=== PATIENT | female | born 1960 | race Two or more races ===

== ENCOUNTER 2016-12-27 14:03 | Emergency (ER) | payer OTHER ==
[~2016-12-27] VITALS: Ht 162.6 cm; Wt 184.6 kg
[2016-12-27 14:03] VITALS: BP 105/51
[~2016-12-27 14:03] MED LIST: ACET-2117 PO; ACET-907 PO; ARIP10TA15 PO; CHOL10002 PO; CITA40TA11 PO; DEXT15DR26 EACHEYE; DIVA500T54 PO; GABA-532 PO; GABA-534 PO; HYDR12.55 PO; LISI-607 PO; MOME13HF2 IH; OMEP40CA37 PO; TRAZ-144 PO
== END 2016-12-27 15:15 ==
LOC: ER 14:04
DX: S30.860A Insect bite (nonvenomous) of lower back and pelvis, initial encounter (principal); E66.01 Morbid (severe) obesity due to excess calories; F31.9 Bipolar disorder, unspecified; I10 Essential (primary) hypertension; Z88.5 Allergy status to narcotic agent; Z88.8 Allergy status to other drugs, medicaments and biological substances; W57.XXXA Bitten or stung by nonvenomous insect and other nonvenomous arthropods, initial encounter; Y93.89 Activity, other specified; Y92.89 Other specified places as the place of occurrence of the external cause; Y99.8 Other external cause status
CPT/HCPCS: 99282; A4606; A6402 ×2; Z7610

== ENCOUNTER 2017-03-30 09:51 | Emergency (ER) | payer MEDICAID, OTHER ==
[~2017-03-30] VITALS: Ht 160 cm; Wt 183.3 kg
[~2017-03-30 09:51] MED LIST changes: -ARIP10TA15 PO; +ARIP10TA9 PO
--- NOTE | 2017-03-30 10:06 | NUR ---
RERE FROM HOME DT REPORTED RECTAL BLEEDING X 3 DAYS. PER PATIENT SHE'S BEEN HAVING BRIGHT RED BLOOD FROM HER RECTAL WITH STOOL. PT DENIES ABDOMINAL PAIN, NAUSEA AND VOMITTING. SKIN IS WARM TO TOUCH AND NON DIAPHORETIC,. AFEBRILE. VSS
[2017-03-30 10:37] LABS: BASOPHILS % (AUTO) 0.4 % (0.0-2.0); EOSINOPHILS # (AUTO) 0.2 /CMM (0.0-0.7); EOSINOPHILS % (AUTO) 3.5 % (0.0-6.0); HEMATOCRIT 46 % (33-45); HEMOGLOBIN 15.2 g/dL (11.5-14.8); LYMPHOCYTES # (AUTO) 1.7 /CMM (0.8-4.8); MEAN CORPUSCULAR HEMOGLOBIN 32 PG (26.0-33.0); MEAN CORPUSCULAR HGB CONC 34 g/dl (31.0-36.0); MEAN CORPUSCULAR VOLUME 96 fL (82-100); MONOCYTES # (AUTO) 0.6 /CMM (0.1-1.30); MONOCYTES % (AUTO) 10.3 % (2.0-12.0); NEUTROPHILS # (AUTO) 3.2 /CMM (1.8-8.9); NEUTROPHILS % (AUTO) 55.8 % (43.0-81.0); PLATELET COUNT (AUTO) 198 /CMM (150-450); RDW COEFFICIENT OF VARIATION 14.6 (11.5-15.0); RED BLOOD CELL COUNT(AUTO) 4.76 MIL/uL (4.0-5.2); WHITE BLOOD COUNT (AUTO) 5.7 K/uL (4.3-11.0)
--- NOTE | 2017-03-30 10:55 | NUR ---
CALLED TRANSPORT ETA IS [phone] PER TA TRIP NUMBER IS [id number]
[2017-03-30 11:42] VITALS: BP 119/76
--- NOTE | 2017-03-30 11:42 | NUR ---
Patient discharged to home in stable condition. Written and verbal after care instructions given. Patient verbalizes understanding of instruction. PATIENT WAS TRANSFERRED VIA [facility]
== END 2017-03-30 11:43 | disposition home or self-care (01) ==
LOC: ER 09:55
DX: K64.8 Other hemorrhoids (principal); K64.4 Residual hemorrhoidal skin tags; E66.01 Morbid (severe) obesity due to excess calories; I10 Essential (primary) hypertension; F12.10 Cannabis abuse, uncomplicated; Z88.5 Allergy status to narcotic agent
CPT/HCPCS: 36415; 85025; 99283; A4606; Z7610

== ENCOUNTER 2017-04-28 12:32 | Inpatient (IN) | payer OTHER ==
[~2017-04-28] VITALS: Ht 162.6 cm; Wt 187.8 kg
[2017-04-28] VITALS (7 sets, daily range): BP systolic 105–143; BP diastolic 51–87
--- NOTE | 2017-04-28 12:35 | NUR ---
PT RERE FROM BOARD AND [facility] C/O DIFFUSE ABDOMINAL PAIN W/ N/V. PER REPORT PT IS SATTING LOW. PLACED ON O2. PT IS AAOX3. AWAITING MD HAMILTON. Addendum: 04/28/17 at 1457 by [facility] PLACED PT ON O2@3L/MIN. SATTING ON 87%. ARTHUR CONTINUE TO MONITOR. AWAITING MD HAMILTON.
--- NOTE | 2017-04-28 12:50 | NUR ---
JUAN DAVID DRY FINISHER AT BEDSIDE FOR EVAL.
[2017-04-28] MEDS ORDERED: IV NS 0.9% 1,000 ML BAG IV ONE (13:00)
[2017-04-28] MEDS ORDERED: ONDANSETRON HCL/PF 4 MG/2 ML VIAL IVP ONE (13:00)
--- NOTE | 2017-04-28 13:05 | NUR ---
PT PLACED ON O2@5L/MIN. SATTING AT 94%.
[2017-04-28] MEDS ORDERED: ONDANSETRON HCL/PF 4 MG/2 ML VIAL ONE ×3 (13:06→21:10)
[2017-04-28 13:08] LABS: BASOPHILS # (AUTO) 0.5 /CMM (0.0-0.2); BASOPHILS % (AUTO) 4.3 % (0.0-2.0); HEMATOCRIT 46 % (33-45); HEMOGLOBIN 15.2 g/dL (11.5-14.8); LYMPHOCYTES # (AUTO) 0.6 /CMM (0.8-4.8); LYMPHOCYTES % (AUTO) 5.8 % (20.0-44.0); MEAN CORPUSCULAR HEMOGLOBIN 32 PG (26.0-33.0); MEAN CORPUSCULAR HGB CONC 33 g/dl (31.0-36.0); MEAN CORPUSCULAR VOLUME 97 fL (82-100); MONOCYTES # (AUTO) 0.6 /CMM (0.1-1.30); MONOCYTES % (AUTO) 5.9 % (2.0-12.0); NEUTROPHILS # (AUTO) 9.3 /CMM (1.8-8.9); PLATELET COUNT (AUTO) 226 /CMM (150-450); RDW COEFFICIENT OF VARIATION 15.1 (11.5-15.0); RED BLOOD CELL COUNT(AUTO) 4.77 MIL/uL (4.0-5.2)
[2017-04-28 13:22] LABS: CALCIUM, SERUM 8.3 mg/dL (8.5-10.1); INR 1.01 (0.87-1.13)
[2017-04-28 13:27] LABS: ALBUMIN 2.8 g/dL (3.4-5.0); BILIRUBIN,DIRECT 0.1 mg/dL (0.0-0.2); BILIRUBIN,TOTAL 0.4 mg/dL (0.2-1.0); TOTAL PROTEIN, SERUM 7.5 g/dL (6.4-8.2)
[2017-04-28 13:31] LABS: APPEARANCE,URINE Clear (CLEAR); BILIRUBIN,URINE Negative (NEGATIVE); BLOOD, URINE Negative Ery/uL (NEGATIVE); COLOR,URINE Yellow (YELLOW); KETONES,URINE Trace (NEGATIVE); LEUKOCYTE ESTERASE ,URINE Negative (NEGATIVE); NITRITE, URINE Negative (NEGATIVE); PH,URINE 5.5 (5.0-8.0); PROTEIN,URINE 30 mg/dl (NEGATIVE); UGLUCOSE Negative (NEGATIVE)
[2017-04-28 13:35] LABS: SQUAMOUS EPITHELIAL CELL,UR Moderate /HPF (None Seen)
[2017-04-28 13:35] LABS: TROPONIN I 0.021 ng/mL (0.00-0.056)
[2017-04-28 13:36] LABS: BACTERIA,URINE Rare /HPF (None Seen)
[2017-04-28] MEDS ORDERED: ACETAMINOPHEN ES 500 MG TABLET ONE (13:56)
[2017-04-28] MEDS ORDERED: ONDANSETRON HCL/PF 4 MG/2 ML VIAL IV ONE (14:00)
[2017-04-28] MEDS ORDERED: ACETAMINOPHEN ES 500 MG TABLET PO ONE (14:00)
--- NOTE | 2017-04-28 14:05 | NUR ---
PT PLACED ON O2@2L/MIN. PER MARSII DIE TESTER VERBAL ORDER.
[2017-04-28 14:23] LABS: ABG BASE EXCESS 8.2 mmol/L; ABG OXYGEN SATURATION 92.1 % (92.0-98.5); ABG PCO2 75.1 mmHg (35.0-45.0); ABG PH 7.318 (7.350-7.450); ABG PO2 72.1 mmHg (75.0-100.0); AaDO2 126.7 mmHg; COHb 2.5 % (0.5-1.5); MetHb 0.5 % (0.0-1.5); O2Hb 89.3 % (94.0-97.0); SITE, ABG Right Radial; VENT MODE, BG NC 5L
--- NOTE | 2017-04-28 15:18 | NUR ---
CALLED DR ARNOLD OFFICE, WAS PAGED.
[2017-04-28] MEDS ORDERED: LEVO330T PO (16:20)
[2017-04-28] MEDS ORDERED: FLUT16SP BNOSTRILS (16:20)
[2017-04-28] MEDS ORDERED: FOLI1TAB16 PO (16:20)
[2017-04-28] MEDS ORDERED: DOCU100C36 PO (16:20)
[2017-04-28] MEDS ORDERED: BENZ0.5T3 PO (16:20)
--- NOTE | 2017-04-28 16:30 | NUR ---
CARLA ARNOLD OFFICE, WAS REPAGED.
--- NOTE | 2017-04-28 17:01 | NUR ---
REPORT GIVEN TO BREE. PT AWAITING TRANSFER TO FLOOR.
--- NOTE | 2017-04-28 17:20 | NUR ---
icu note- called dr. ordoñez's exchange, mariel sheridan food chemist for dr. ordoñez answered, notified of pt's admission, attempted to obtain admission orders, orders for albuterol, Atrovent and solu-medrol were received.
--- NOTE | 2017-04-28 17:30 | NUR ---
icu initial note- received report from katherine beltran, pt was received a/o x4, able to make needs known, able to follow commands, pt is able to move all extremities, pt was placed on 5l nc, sating well, no s/s of resp.distress or sob noted at this time, pt was placed on bedside monitor showing sr in 70's, no c/o of chest pain or discomfort, no c/o n&v, pt states I feel much better now, pt has l hand #20g,sl, c/d/i/patent, flushing well, no s/s of infection/ infiltration noted at this time, skin check completed, skin is intact, pt is able to move independently. all safety measures in place at all times, call light within easy reach, will monitor pt closely for changes
[2017-04-28] MEDS ORDERED: ALBUTEROL SULFATE 8 GM HFA.AER.AD IH PRN (18:30)
[2017-04-28] MEDS ORDERED: IPRATROPIUM BROMIDE 14 GM INHALER (or 12.9 GM) IH PRN (18:30)
[2017-04-28] MEDS ORDERED: IPRATROPIUM NEB FS 0.5 MG/2.5 ML AMPUL.NEB NEB PRN (19:30)
[2017-04-28] MEDS ORDERED: ALBUTEROL FS 2.5 MG/3 ML VIAL.NEB NEB PRN (19:30)
--- NOTE | 2017-04-28 19:58 | NUR ---
RESISTOR COATER. INITIAL ASSESSMENT. RECEIVED THE PT REST ON THE BED. AWAKE, ALERT, FOLLOW COMMANDS. INSULATION HOSEMAN SHOWING NSR. IV RT HAND 20G. SALINE LOCK. OXYGEN 5L VIA NASAL CANNULA. SAT 98%. NO ACUTE DISTRESS NOTED. WILL CONTINUE TO MONITOR VITALS.
[2017-04-28] MEDS: IPRATROPIUM NEB FS 0.5 MG/2.5 ML AMPUL.NEB NEB SCH ×2 (20:04→23:13)
[2017-04-28] MEDS: ONDANSETRON HCL/PF 4 MG/2 ML VIAL IV PRN (21:13)
[2017-04-28] MEDS: methylPREDNISolone SOD SUCC 40 MG/ML VIAL IV SCH (21:13)
--- NOTE | 2017-04-28 22:00 | NUR ---
GOLD STAMPER. BIPAP PLACED. SETTINGS 20/10, RATE 14,FIO2 60%. SAT 95%. NO ACUTE DISTRESS NOTED. WILL CONTINUE TO MONITOR VITALS.
--- NOTE | 2017-04-28 22:08 | NUR ---
PT PLACED ON NOC BIPAP PER MD ORDER. PT IS AWAKE AND ALERT. RN NOTIFIED. WILL CONTINUE TO MONITOR. Addendum: 04/28/17 at 2209 by AWA BERGMAN RT Amended: Links added.
--- NOTE | 2017-04-28 23:14 | NUR ---
PT REMOVED BIPAP. RN NOTIFIED. PLACED ON SM. WILL CONTINUE TO MONITOR. Addendum: 04/28/17 at 2315 by AWA BERGMAN RT Amended: Links added.
--- NOTE | 2017-04-28 23:18 | NUR ---
LEASE BUYER. PT REFUSED BIPAP. REMOVED AT 2315, SIMPLE MASK PLACED.OXYGEN 6L. WILL CONTINUE TO MONITOR.
[2017-04-29] VITALS (20 sets, daily range): BP systolic 102–156; BP diastolic 50–108
[2017-04-29] MEDS: IPRATROPIUM NEB FS 0.5 MG/2.5 ML AMPUL.NEB NEB SCH ×7 (03:25→23:30)
--- NOTE | 2017-04-29 04:00 | NUR ---
FURNACE REPAIRER HELPER. AM CARE, ORAL CARE. BED BATH GIVEN. LINEN CHANGED. REMAINING SAME OXYGEN 6L SIMPLE MASK SAT 98%HOB ELEVATED. PT REFUSED BIPAP. TURN AND REPOSITION PT INDEPENDENT.AFEBRILE. WILL CONTINUE TO MONITOR VITALS.
[2017-04-29] MEDS: methylPREDNISolone SOD SUCC 40 MG/ML VIAL IV SCH ×3 (05:22→21:22)
--- NOTE | 2017-04-29 08:00 | NUR ---
SHIPYARD LABORER NOTE PATIENT , IN BED , ALERT , ORIENTED ON 6L MASK ,NO SOB NOTED , BED IN LOWEST AND LOCKED POSITION , PLAN OF CARE DISCUSSED WITH PATIENT BED IN LOWEST AND LOCKED POSITION, WILL CONT TO MONITOR CLOSELY
--- NOTE | 2017-04-29 10:30 | NUR ---
horticultural farmer note seen by dr smita lawton to start home meds , faxed to pharmacy
--- NOTE | 2017-04-29 11:30 | NUR ---
agricultural research engineer note seen by rt breathing tx done
[2017-04-29] MEDS ORDERED: DOCUSATE SODIUM 100 MG CAPSULE PO PRN (12:30)
[2017-04-29] MEDS ORDERED: ACETAMINOPHEN W/ CODEINE#3 1 EA TABLET PO PRN (12:30)
[2017-04-29] MEDS ORDERED: POLYVINYL ALCOHOL 15 ML BOTTLE EACHEYE PRN (12:30)
--- NOTE | 2017-04-29 15:28 | NUR ---
vocational horticulture instructor note transfer to tele unit unde ascls protocol by bed with stable condition. report given to jose murphy
--- NOTE | 2017-04-29 15:30 | NUR ---
STOREKEEPER STEWARD NOTES TRANSFERED FROM ICU WITH STABLE VITAL SIGNS. NO ACUTE DISTRESS NOTED. ALERT ORIENTED X4. DENIED ANY PAIN. ORIENTED TO THE ROOM. IV ACCESS PATENT AND INTACT. SAFE MEASURES IN PLACE. CALL LIGHT PLACED WITHIN REACH. WILL CONTINUE TO MONITOR ACCORDINGLY
[2017-04-29] MEDS ORDERED: DULERA INH SCH (17:00)
[2017-04-29] MEDS ORDERED: DEXTROSE 50%-WATER 50 ML DISP.SYRIN IV PRN (17:00)
[2017-04-29] MEDS: BENZTROPINE MESYLATE (1 MG) 1 MG TABLET PO SCH (18:08)
[2017-04-29] MEDS: GABAPENTIN 100 MG CAPSULE PO SCH (18:08)
[2017-04-29] MEDS: BLOOD SUGAR DIAGNOSTIC 1 EACH STRIP IN SCH ×2 (18:09→21:59)
[2017-04-29] MEDS: INSULIN ASPART/LISPRO 100 UNIT/ML CARTRIDGE SQ PRN ×2 (18:11→22:04)
--- NOTE | 2017-04-29 18:30 | NUR ---
RN CLOSING NOTES PATIENT IN BED AWAKE, VERBALLY RESPONSIVE.HOB ELAVATED. NO ACUTE DISTRESS NOTED. ON O2 8LPM VIA FACE MASK. IV ACCES PATENT AND INTACT.NO REDNESS AND NO S/SX OF INFILTRATION NOTED.BREATHING UNLABORED. DUE MEDICATIONS GIVEN, NO ASE NOTED. NEEDS ATTENDED. CALL LIGHT PLACED WITHIN REACH. SAFETY MEASURE IN PLACE. WILL CONTINUE TO MONITOR ACCORDINGLY AND ENDORSE TO FACILITIES MAINTENANCE MANAGER FOR CONTINUITY OF CARE.
[2017-04-29] MEDS: LEVOCARNITINE 330 MG TABLET PO SCH (19:40)
--- NOTE | 2017-04-29 19:46 | NUR ---
RECIEVED MS DIALLO ALERT AND ORIENTATED IN GOOD SPIRITS. ON A SPECIAL AIR FLOW BED VERBALIZING HER NEEDS 8L VIA MASK ABLE TO SPEAK IN SENTENCES W/O SOB SKIN WARM AN DRY
[2017-04-29] MEDS: LISINOPRIL (5MG) 5 MG TABLET PO SCH (21:23)
[2017-04-29] MEDS: TRAZODONE 50 MG TABLET PO SCH (21:23)
[2017-04-29] MEDS: GABAPENTIN 300 MG CAPSULE PO SCH (21:23)
[2017-04-29] MEDS: DIVALPROEX SODIUM 500 MG TABLET.DR PO SCH (21:25)
--- NOTE | 2017-04-29 22:00 | NUR ---
BLOOD SUGAR 118
--- NOTE | 2017-04-30 | NUR ---
Pt does not want to be put on bipap, says feels comfortable with the o2 mask
[2017-04-30 00:37] VITALS: BP 128/80
[2017-04-30] MEDS: ONDANSETRON HCL/PF 4 MG/2 ML VIAL IV PRN (01:25)
[2017-04-30] MEDS: IPRATROPIUM NEB FS 0.5 MG/2.5 ML AMPUL.NEB NEB SCH ×6 (03:30→23:30)
--- NOTE | 2017-04-30 04:41 | NUR ---
Ms. Hudson slept restless in the bed, noted turning from abdomen, to side, to back. Medicated x1 for nausea with no emesis, and effective. She is continent and will turn to allow the nurses to place her on a bedpan. She is NSR to SB (58) HR on the teletypesetter monitor. ON the mask 8 liters 02 sats 95% at rest, (asleep). Remain alert and orientated X4. Needs much assist with ADLs
[2017-04-30 04:43] VITALS: BP 130/75
[2017-04-30] MEDS: methylPREDNISolone SOD SUCC 40 MG/ML VIAL IV SCH ×3 (05:45→21:40)
[2017-04-30] MEDS: BLOOD SUGAR DIAGNOSTIC 1 EACH STRIP IN SCH ×4 (06:34→21:47)
[2017-04-30 07:08] VITALS: BP 119/70
--- NOTE | 2017-04-30 07:52 | NUR ---
MS/RN OPENING NOTE PATIENT IN BED IN STALE CONDITION. A/O X 3. NO SIGNS OF ACUTE DISTRESS. NO COMPLAIN OF PAIN OR DISCOMFORT. ON TELE MONITOR WITH SINUS RHYTHM. ALL NEEDS ATTENDED TO. CALL LIGHT WITHIN REACH. WILL CONTINUE TO MONITOR TO ENSURE SAFETY.
[2017-04-30] MEDS: FLUTICASONE PROPIONATE 16 GM BOTTLE NS SCH (09:00)
[2017-04-30] MEDS: LEVOCARNITINE 330 MG TABLET PO SCH ×2 (09:20→17:02)
[2017-04-30] MEDS: CITALOPRAM HYDROBROMIDE 20 MG TABLET PO SCH (09:20)
[2017-04-30] MEDS: GABAPENTIN 100 MG CAPSULE PO SCH ×2 (09:20→17:02)
[2017-04-30] MEDS: ARIPIPRAZOLE 5 MG TABLET PO SCH (09:20)
[2017-04-30] MEDS: DIVALPROEX SODIUM 500 MG TABLET.DR PO SCH ×2 (09:20→21:40)
[2017-04-30] MEDS: CHOLECALCIFEROL 1,000 UNIT TABLET (VIT D3) PO SCH (09:20)
[2017-04-30] MEDS: FOLIC ACID 1 MG TABLET PO SCH (09:21)
[2017-04-30] MEDS: PANTOPRAZOLE 40 MG TABLET.DR PO SCH (09:21)
[2017-04-30] MEDS: HYDROCHLOROTHIAZIDE 25 MG TABLET PO SCH (09:21)
[2017-04-30] MEDS: BENZTROPINE MESYLATE (1 MG) 1 MG TABLET PO SCH ×2 (09:21→17:02)
[2017-04-30] MEDS: ACETAMINOPHEN 325 MG TABLET PO PRN ×2 (09:39→18:42)
--- NOTE | 2017-04-30 10:27 | NUR ---
TELE/RN REFUSE TELE MONITOR PATIENT REFUSE TO HAVE TELE MONITOR ON. OFFERED TIMES 3 WITH RISK BENEFITS EXPLAINED, STILL CONTINUE TO REFUSE. WILL MAKE DR FOFANA AWARE.
--- NOTE | 2017-04-30 11:17 | NUR ---
TELE/RN SEEN BY DR SLOAN PATIENT SEEN BY DR SLOAN WITH FOLLOW UP CXR ORDER IN AM.
[2017-04-30 16:00] VITALS: BP 119/70
--- NOTE | 2017-04-30 18:04 | NUR ---
TELE/RN CLOSING NOTE PATIENT IN BED IN STABLE CONDITION. A/O X 3. NO SIGNS OF ACUTE DISTRESS. NO COMPLAIN OF PAIN OR DISCOMFORT. ON OXYGEN AT 8LPM VIA FACE MASK, TOLERATING WELL. TELE MONITOR STANDBY, CONTINUE TO REFUSE TELE MONITOR. OFFERED TIMES 3 WITH RISK BENEFITS EXPLAINED STILL CONTINUE TO REFUSE. ALL NEEDS ATTENDED TO. CALL LIGHT WITHIN REACH. WILL ENDORSE TO NEXT SHIFT FOR CONTINUITY OF CARE.
--- NOTE | 2017-04-30 19:33 | NUR ---
OUT AND OUT CIGAR MAKER HAND NOTES RT MAR AT BEDSIDE ADMINISTERING BREATHING TREATMENT SCHEDULED.
--- NOTE | 2017-04-30 19:45 | NUR ---
MS RN NOTES RECEIVED ON BED A/O 4,NO SOB O2 8L/FACE MASK,O2 SAT 96%.OBESE,ON BARIATRIC BED,ABLE TO REPOSITION SELF.CONTINENT PER BEDPAN .SALINE LOCK LEFT HAND g22 INTACT AND PATENT.WILL CONTINUE TO MONITOR STATUS.
[2017-04-30 20:00] VITALS: BP 145/80
[2017-04-30 22:00] VITALS: BP 145/80
--- NOTE | 2017-04-30 22:00 | NUR ---
MOBILE MARKETING SPECIALIST NOTES ACCU-CHECK BLOOD SUGAR CHECK 112,NO INSULIN COVERAGE.
[2017-04-30] MEDS: LISINOPRIL (5MG) 5 MG TABLET PO SCH (22:31)
[2017-04-30] MEDS: GABAPENTIN 300 MG CAPSULE PO SCH (22:31)
[2017-04-30] MEDS: TRAZODONE 50 MG TABLET PO SCH (22:34)
--- NOTE | 2017-04-30 23:00 | NUR ---
PT REFUSED BIPAP AT NIGHT. PLACED BACK ON SIMPLE MASK 8L, RN THOMAS NOTIFIED.
[2017-05-01] VITALS: BP 139/84
--- NOTE | 2017-05-01 | NUR ---
CALENDERER NOTES REFUSED TELE THIS TIME.PLACE ON STAND BY.
[2017-05-01] MEDS: IPRATROPIUM NEB FS 0.5 MG/2.5 ML AMPUL.NEB NEB SCH ×6 (03:01→23:57)
[2017-05-01] MEDS: ONDANSETRON HCL/PF 4 MG/2 ML VIAL IV PRN (03:12)
--- NOTE | 2017-05-01 03:12 | NUR ---
AIRPORT OPERATIONS DUTY MANAGER NOTES C/O NAUSEA,ZOFRAN 4MG IV GIVEN ORDERED
--- NOTE | 2017-05-01 03:12 | NUR ---
DAMASCENER NOTES C/O NAUSEA,ZOFRAN 4MG IVP GIVEN.
[2017-05-01] MEDS ORDERED: MAG HYDROX/AL HYDROX/SIMETH 30 ML UDC ONE (03:17)
--- NOTE | 2017-05-01 03:18 | NUR ---
MINING TEACHER NOTES CLAIMED GASSY STOMACH,HERMILA HOLLINS MADE AWARE.WITH ORDER TO GIVE MAALOX 30 ML PO Q 6NOTED AND CARRIED OUT
[2017-05-01] MEDS ORDERED: MAG HYDROX/AL HYDROX/SIMETH 30 ML UDC PO PRN (03:30)
[2017-05-01 04:00] VITALS: BP 123/76
--- NOTE | 2017-05-01 05:30 | NUR ---
INTERSTATE BUS DRIVER NOTES ACCU-CHECK BLOOD SUGAR CHECK 136,COVERED WITH INSULIN LISPRO 2 UNITS PER SLIDING SCALE.
[2017-05-01] MEDS: methylPREDNISolone SOD SUCC 40 MG/ML VIAL IV SCH ×3 (05:40→21:12)
[2017-05-01] MEDS: BLOOD SUGAR DIAGNOSTIC 1 EACH STRIP IN SCH (05:45)
[2017-05-01] MEDS: INSULIN ASPART/LISPRO 100 UNIT/ML CARTRIDGE SQ PRN (05:52)
--- NOTE | 2017-05-01 07:00 | NUR ---
PRESCRIPTIONIST NOTES TELE BOX ON STANDBY,PATIENT REFUSED TO PUT IT BACK.MORNING CARE RENDERED BY SHANTEL BOB.O2 AT 8L/NC IN USED O2 SAT 96%.IN NO ACUTE DISTRESS.WILL ENDORSE TO DAY NURSE FOR EBONI.
--- NOTE | 2017-05-01 07:35 | NUR ---
AIR TRAFFIC CONTROL MANAGER OPENING NOTE PATIENT IS ALERT AND ORIENTED x4. NO PAIN AT THIS TIME. NO SOB OR DISTRESS NOTED. CALL LIGHT WITHIN REACH. SAFETY MEASURES IMPLEMENTED. ABLE TO COMMUNICATE NEEDS. TELE -SR AT THIS TIME. IV INTACT AND PATENT NO REDNESS OR SWELLING NOTED. NO IV FLUIDS RUNNING AT THIS TIME. CHEST X-RAY DONE THIS MORNING, NO CHANGES NOTED. POSSIBLE DISCHARGE WILL FOLLOW UP WITH CASE MANAGEMENT. WILL CONTINUE TO MONITOR THROUGHOUT SHIFT
[2017-05-01 08:00] VITALS: BP 114/61
[2017-05-01] MEDS: GABAPENTIN 100 MG CAPSULE PO SCH ×2 (09:42→16:14)
[2017-05-01] MEDS: FOLIC ACID 1 MG TABLET PO SCH (09:45)
[2017-05-01] MEDS: ARIPIPRAZOLE 5 MG TABLET PO SCH (09:45)
[2017-05-01] MEDS: BENZTROPINE MESYLATE (1 MG) 1 MG TABLET PO SCH ×2 (09:45→16:14)
[2017-05-01] MEDS: CHOLECALCIFEROL 1,000 UNIT TABLET (VIT D3) PO SCH (09:49)
[2017-05-01] MEDS: HYDROCHLOROTHIAZIDE 25 MG TABLET PO SCH (09:49)
[2017-05-01] MEDS: PANTOPRAZOLE 40 MG TABLET.DR PO SCH (09:50)
[2017-05-01] MEDS: CITALOPRAM HYDROBROMIDE 20 MG TABLET PO SCH (09:50)
[2017-05-01] MEDS: LEVOCARNITINE 330 MG TABLET PO SCH ×2 (09:52→16:14)
[2017-05-01] MEDS: DIVALPROEX SODIUM 500 MG TABLET.DR PO SCH ×2 (09:52→21:12)
[2017-05-01] MEDS: FLUTICASONE PROPIONATE 16 GM BOTTLE NS SCH (09:53)
[2017-05-01] MEDS: FLUTICASONE/VILANTEROL 1 EACH BLST.W.DEV IH SCH (09:54)
[2017-05-01 12:11] LABS: ABG BASE EXCESS 12.5 mmol/L; ABG PCO2 72.3 mmHg (35.0-45.0); ABG PH 7.374 (7.350-7.450); ABG PO2 103.6 mmHg (75.0-100.0); AaDO2 186.2 mmHg; COHb 0.9 % (0.5-1.5); MetHb 0.3 % (0.0-1.5); O2Hb 95.8 % (94.0-97.0); SITE, ABG Left Radial
[2017-05-01 16:00] VITALS: BP 142/86
--- NOTE | 2017-05-01 18:36 | NUR ---
SHOWROOM SALESPERSON CLOSING NOTE NO NEW CHANGES. NO PAIN AT THIS TIME. NO SOB OR DISTRESS NOTED. CALL LIGHT WITHIN REACH AT ALL TIMES. SAFETY MEASURES IMPLEMENTED. ABLE TO COMMUNICATE NEEDS. IV INTACT AND PATENT NO REDNESS OR SWELLING NOTED. ALL DUE MEDICATIONS GIVEN ORDERED. ALL NURSING CARE NEEDS ATTENDED TO NEEDED. WILL ENDORSE TO TINT LAYER NURSE FOR EBONI
[2017-05-01 19:00] VITALS: BP 133/83
--- NOTE | 2017-05-01 19:45 | NUR ---
WEB PROJECT MANAGER NOTES RECEIVED ON BED A/O X4,OBESE,ON BARIMAXX BED FOR MOBILITY.SALINE LOCK LEFT HAND INTACT AND PATENT.ABLE TO REPOSITION SELF ON BED.O2 6L/NC IN USED. RT AT BEDSIDE ADMINISTERING BREATHING TX SCHEDULED.CALL LIGHT IN REACH,NEEDS ANTICIPATED.
[2017-05-01 20:00] VITALS: BP 133/83
[2017-05-01] MEDS: GABAPENTIN 300 MG CAPSULE PO SCH (21:58)
[2017-05-01] MEDS: TRAZODONE 50 MG TABLET PO SCH (21:58)
[2017-05-01] MEDS: LISINOPRIL (5MG) 5 MG TABLET PO SCH (21:58)
[2017-05-02] MEDS: IPRATROPIUM NEB FS 0.5 MG/2.5 ML AMPUL.NEB NEB SCH ×5 (03:55→15:14)
[2017-05-02] MEDS: methylPREDNISolone SOD SUCC 40 MG/ML VIAL IV SCH ×2 (05:03→11:40)
--- NOTE | 2017-05-02 06:24 | NUR ---
MS RN NOTES NO SIGNIFICANT CHANGE IN STATUS.SLEPT WELL WITH TRAZODONE.CALL LIGHT IN REACH.O2 SAT 94% ON 6L.POSSIBLE D/C TODAY SNF VS [facility].HEEL SEAT FLAP STAPLER WORKING FOR PLACEMENT.WILL ENDORSE TO DAY NURSE FOR EBONI.
--- NOTE | 2017-05-02 07:53 | NUR ---
TELE/RN OPENING NOTE RECEIVED PATIENT IN BED AWAKE. ALERT AND ORIENTED X4. RESPIRATION REGULAR AND UNLABORED. DENIES SOB, PAIN AT THIS TIME. IN NO APPARENT DISTRESS. RIGHT HAND IV SALINE LOCKED. NO S/S INFILTRATION NOTED. BED LOW AND LOCKED. SIDE RAIL UP X2. CALL LIGHT WITHIN REACH. WILL CONTINUE TO MONITOR.
[2017-05-02 08:00] VITALS: BP 141/82
[2017-05-02 08:07] VITALS: BP 141/82
[2017-05-02] MEDS: PANTOPRAZOLE 40 MG TABLET.DR PO SCH (08:28)
[2017-05-02] MEDS: DIVALPROEX SODIUM 500 MG TABLET.DR PO SCH (08:28)
[2017-05-02] MEDS: BENZTROPINE MESYLATE (1 MG) 1 MG TABLET PO SCH ×2 (08:29→16:44)
[2017-05-02] MEDS: GABAPENTIN 100 MG CAPSULE PO SCH ×2 (08:29→16:44)
[2017-05-02] MEDS: CHOLECALCIFEROL 1,000 UNIT TABLET (VIT D3) PO SCH (08:29)
[2017-05-02] MEDS: FOLIC ACID 1 MG TABLET PO SCH (08:29)
[2017-05-02] MEDS: HYDROCHLOROTHIAZIDE 25 MG TABLET PO SCH (08:29)
[2017-05-02] MEDS: ARIPIPRAZOLE 5 MG TABLET PO SCH (08:29)
[2017-05-02] MEDS: CITALOPRAM HYDROBROMIDE 20 MG TABLET PO SCH (08:30)
[2017-05-02] MEDS: FLUTICASONE/VILANTEROL 1 EACH BLST.W.DEV IH SCH (09:00)
--- NOTE | 2017-05-02 09:00 | NUR ---
TELE/RN MED NOT DELIVERED CELESTINE 330 MG NOT DELIVERED BY THE PHAR,. FOLLOW UP CALL MADE, STILL WAITING.
[2017-05-02] MEDS: FLUTICASONE PROPIONATE 16 GM BOTTLE NS SCH (09:01)
[2017-05-02] MEDS: LEVOCARNITINE 330 MG TABLET PO SCH ×2 (11:40→16:44)
--- NOTE | 2017-05-02 11:43 | NUR ---
CECI/HEIDI MED CARNITOR 330 MG DELIVERED BY THE PHARM AND DELIVERED. Addendum: 05/02/17 at 1146 by CELINE WILSON RN CARNITOR 330 MG DELIVERED BY THE PHARM AND THE MEDICATION ADMINISTERED TO THE PATIENT.
[2017-05-02 16:17] VITALS: BP_SYST 142; BP_SYST 155; BP_DIAS 71
--- NOTE | 2017-05-02 16:41 | NUR ---
MS/RN Room air saturation Saturation on room air 84%.
--- NOTE | 2017-05-02 18:38 | NUR ---
MS/RN CLOSING NOTE PATIENT IN BED AWAKE. ALERT AND ORIENTED X4. DENIES PAIN, DENIES SOB. RESPIRATION REGULAR AND UNLABORED. IN NO APPARENT DISTRESS. GOOD SKIN CARE RENDERED. ASSISTED WITH DRESSING AND HAD DINNER. BED LOW AND LOCKED. SIDE RAIL UP X2. CALL LIGHT WITHIN REACH. WAITING FOR PICKUP FOR DISCHARGE. WILL ENDORSE TO LADLE LINER HELPER.
[2017-05-02 20:00] VITALS: BP 117/58
--- NOTE | 2017-05-02 20:30 | NUR ---
MS RN NOTE PATIENT DISCHARGED BY TRANSPORT TO [facility] IN STABLE CONDITION. DISCHARGE PAPERWORK SIGNED AND GIVEN TO TRANSPORT. RECEIVING 6L O2 VIA NASAL CANNULA. ALL DISCHARGE INSTRUCTIONS EXPLAINED TO PATIENT. IV AND ID BAND REMOVED.
== END 2017-05-02 20:30 | DRG 143 ==
LOC: ER 12:43 → ICU 17:33 → TELE 04-29 14:43 → MED 05-02 08:13
PROVIDERS: ADMIT Internal Medicine; ATTEND Internal Medicine
DX: E66.2 Morbid (severe) obesity with alveolar hypoventilation (principal); J96.11 Chronic respiratory failure with hypoxia; E72.20 Disorder of urea cycle metabolism, unspecified; Z68.45 Body mass index [BMI] 70 or greater, adult; J96.12 Chronic respiratory failure with hypercapnia; I10 Essential (primary) hypertension; F12.90 Cannabis use, unspecified, uncomplicated; M17.11 Unilateral primary osteoarthritis, right knee; Z88.1 Allergy status to other antibiotic agents; Z88.5 Allergy status to narcotic agent; Z79.899 Other long term (current) drug therapy; F31.9 Bipolar disorder, unspecified; J45.909 Unspecified asthma, uncomplicated; Z87.891 Personal history of nicotine dependence; Z80.0 Family history of malignant neoplasm of digestive organs; F99 Mental disorder, not otherwise specified; J44.9 Chronic obstructive pulmonary disease, unspecified; A08.4 Viral intestinal infection, unspecified; T38.0X5A Adverse effect of glucocorticoids and synthetic analogues, initial encounter; Y92.099 Unspecified place in other non-institutional residence as the place of occurrence of the external cause; R73.9 Hyperglycemia, unspecified; T42.6X5A Adverse effect of other antiepileptic and sedative-hypnotic drugs, initial encounter
CPT/HCPCS: 36415; 36600; 71045-TC; 80048-TC; 80076-TC; 81000-TC; 82803-TC; 82962-TC; 83690-TC; 84484-TC; 85025-TC; 85378-TC; 85730-TC; 87081-TC; 94762-TC; 94799-TC; A4606; J1815; J2405; J2920; J7030; Z7610

== ENCOUNTER 2017-07-27 18:22 | Emergency (ER) | payer OTHER ==
[~2017-07-27] VITALS: Ht 162.6 cm; Wt 174.6 kg
[~2017-07-27 18:22] MED LIST changes: +BENZ0.5T43 PO; +DOCU100C36 PO; +FLUT16SP BNOSTRILS; +FOLI1TAB16 PO; +LEVO330T PO; -TRAZ-144 PO; +TRAZ-182 PO
[2017-07-27 18:25] VITALS: BP 124/76
--- NOTE | 2017-07-27 20:33 | NUR ---
RUDY CALLED FROM [facility] FOR SERVICE TECH/WELDER IS BETWEEN [phone] TRIP #[id number]
[2017-07-27] MEDS: IBUPROFEN 400 MG TABLET PO ONE ×2 (21:11→21:15)
[2017-07-27] MEDS ORDERED: IBUPROFEN 200 MG TABLET ONE (21:12)
--- NOTE | 2017-07-27 22:06 | NUR ---
JENN MTZ AT BEDSIDE FOR SPLINT APPLICATION.
--- NOTE | 2017-07-27 22:29 | NUR ---
REPORT GIVEN TO EMT TRANSPORT.
== END 2017-07-27 22:30 | disposition home or self-care (01) ==
LOC: ER 18:30
DX: S62.397A Other fracture of fifth metacarpal bone, left hand, initial encounter for closed fracture (principal); J45.909 Unspecified asthma, uncomplicated; G40.909 Epilepsy, unspecified, not intractable, without status epilepticus; I10 Essential (primary) hypertension; M19.90 Unspecified osteoarthritis, unspecified site; F31.9 Bipolar disorder, unspecified; E66.01 Morbid (severe) obesity due to excess calories; F17.200 Nicotine dependence, unspecified, uncomplicated; F12.10 Cannabis abuse, uncomplicated; Z88.5 Allergy status to narcotic agent; Z88.8 Allergy status to other drugs, medicaments and biological substances; W23.0XXA Caught, crushed, jammed, or pinched between moving objects, initial encounter; Y93.89 Activity, other specified; Y92.89 Other specified places as the place of occurrence of the external cause; Y99.8 Other external cause status
CPT/HCPCS: 73130-TC; A4606; Z7610

== ENCOUNTER 2017-09-11 15:42 | Emergency (ER) | payer OTHER ==
[~2017-09-11] VITALS: Ht 162.6 cm; Wt 175.1 kg
--- NOTE | 2017-09-11 15:55 | NUR ---
AAOX3, [id number] FROM [facility]: PELVIC PAIN, DYSURIA. RR IS EVEN AND UNLABORED WITH NAD NOTED. SKIN IS WARM AND DRY. AWAITING MD FOR EVAL.
[2017-09-11] MEDS ORDERED: KETOROLAC TROMETHAMINE INJ 30 MG/ML VIAL IV ONE (16:00)
[2017-09-11] MEDS ORDERED: IV NS 0.9% 1,000 ML BAG IV ONE (16:00)
[2017-09-11 16:26] LABS: BASOPHILS % (AUTO) 0.3 % (0.0-2.0); EOSINOPHILS % (AUTO) 1.8 % (0.0-6.0); HEMATOCRIT 45 % (33-45); HEMOGLOBIN 15.3 g/dL (11.5-14.8); LYMPHOCYTES # (AUTO) 2.4 /CMM (0.8-4.8); LYMPHOCYTES % (AUTO) 28.6 % (20.0-44.0); MEAN CORPUSCULAR HGB CONC 34 g/dl (31.0-36.0); MEAN CORPUSCULAR VOLUME 96 fL (82-100); MONOCYTES # (AUTO) 0.6 /CMM (0.1-1.30); MONOCYTES % (AUTO) 6.5 % (2.0-12.0); NEUTROPHILS # (AUTO) 5.4 /CMM (1.8-8.9); NEUTROPHILS % (AUTO) 62.8 % (43.0-81.0); PLATELET COUNT (AUTO) 202 /CMM (150-450); RDW COEFFICIENT OF VARIATION 15.5 (11.5-15.0); WHITE BLOOD COUNT (AUTO) 8.6 K/uL (4.3-11.0)
[2017-09-11] MEDS ORDERED: POLY15DR40 EACHEYE (16:27)
[2017-09-11] MEDS ORDERED: FLUT1BLS IH (16:27)
[2017-09-11] MEDS ORDERED: PANT40TA2 PO (16:27)
[2017-09-11] MEDS ORDERED: POLY17PO4 PO (16:27)
[2017-09-11 16:33] LABS: POTASSIUM 5.2 mmol/L (3.5-5.1)
[2017-09-11 16:41] LABS: ALBUMIN 2.5 g/dL (3.4-5.0); BILIRUBIN,TOTAL 0.5 mg/dL (0.2-1.0); TOTAL PROTEIN, SERUM 7.4 g/dL (6.4-8.2)
[2017-09-11 17:00] LABS: APPEARANCE,URINE Clear (CLEAR); BILIRUBIN,URINE Negative (NEGATIVE); BLOOD, URINE Negative Ery/uL (NEGATIVE); COLOR,URINE Yellow (YELLOW); KETONES,URINE Trace (NEGATIVE); LEUKOCYTE ESTERASE ,URINE Negative (NEGATIVE); NITRITE, URINE Negative (NEGATIVE); PROTEIN,URINE Negative (NEGATIVE); UGLUCOSE Negative (NEGATIVE)
[2017-09-11] MEDS ORDERED: KETOROLAC TROMETHAMINE INJ 30 MG/ML VIAL ONE (17:04)
--- NOTE | 2017-09-11 17:10 | NUR ---
APPLE JUICE GIVEN TO PATIENT.
[2017-09-11 17:17] LABS: BACTERIA,URINE None seen /HPF (None Seen); RBC,URINE 0-2 /HPF (0-2); SQUAMOUS EPITHELIAL CELL,UR Few /HPF (None Seen); WBC,URINE 0-2 /HPF (0-3)
--- NOTE | 2017-09-11 19:25 | NUR ---
REPORT GIVEN TO HEIDI OLIVA FOR EBONI.
--- NOTE | 2017-09-11 20:24 | NUR ---
[facility] CREW BEDSIDE TO TRANSPORT PT. REPORT GIVEN TO EMS FOR EBONI. VSS UPON DISCHARGE. PT BEING TRANSFERRED ONTO EMS GURNEY. Patient discharged to home in stable condition. Written and verbal after care instructions given. Patient verbalizes understanding of instruction.IV removed. Catheter intact and site benign. Pressure and 4x4 applied to site. No bleeding noted.
[2017-09-11 20:25] VITALS: BP 108/57
== END 2017-09-11 20:27 | disposition home or self-care (01) ==
LOC: ER 15:43
DX: R10.30 Lower abdominal pain, unspecified (principal); R30.0 Dysuria; I10 Essential (primary) hypertension; G40.909 Epilepsy, unspecified, not intractable, without status epilepticus; J45.909 Unspecified asthma, uncomplicated; F31.9 Bipolar disorder, unspecified; E66.01 Morbid (severe) obesity due to excess calories; M19.90 Unspecified osteoarthritis, unspecified site; F17.200 Nicotine dependence, unspecified, uncomplicated; Z88.5 Allergy status to narcotic agent; Z88.8 Allergy status to other drugs, medicaments and biological substances; Z68.44 Body mass index [BMI] 60.0-69.9, adult
CPT/HCPCS: 36415; 76856-TC; 80048-TC; 80076-TC; 81000-TC; 82962-TC; 83690-TC; 84703-TC; 85025-TC; A4606; J1885; J7030; Z7610

== ENCOUNTER 2017-12-05 12:19 | Emergency (ER) | payer OTHER ==
[~2017-12-05] VITALS: Ht 177.8 cm; Wt 184.0 kg
[~2017-12-05 12:19] MED LIST changes: -ACET-2117 PO; -ACET-907 PO; -DEXT15DR26 EACHEYE; -DOCU100C36 PO; +FLUT1BLS IH; -MOME13HF2 IH; -OMEP40CA37 PO; +PANT40TA2 PO; +POLY15DR40 EACHEYE; +POLY17PO4 PO
--- NOTE | 2017-12-05 12:20 | NUR ---
BIB EMS [facility] SNF FOR MIGRANE HEADACHE X 3 WEEKS, NAD NOTED, VSS, RESP EVEN AND UNLABORED, PT WAS PUT ON MONITOR, WAITING FOR MD HAMILTON
[2017-12-05] MEDS ORDERED: diphenhydrAMINE HCL 50 MG/ML VIAL ONE (13:16)
[2017-12-05] MEDS ORDERED: METOCLOPRAMIDE HCL 10 MG/2 ML VIAL ONE (13:16)
[2017-12-05] MEDS ORDERED: diphenhydrAMINE HCL 50 MG/ML VIAL IV ONE (13:30)
[2017-12-05] MEDS ORDERED: METOCLOPRAMIDE HCL 10 MG/2 ML VIAL IV ONE (13:30)
[2017-12-05] MEDS ORDERED: IV NS 0.9% 250 ML BAG IV ONE (13:30)
[2017-12-05] MEDS ORDERED: IV NS 0.9% 1,000 ML BAG IV ONE (13:30)
[2017-12-05 13:35] LABS: BASOPHILS # (AUTO) 0.2 /CMM (0.0-0.2); BASOPHILS % (AUTO) 1.7 % (0.0-2.0); HEMATOCRIT 45 % (33-45); HEMOGLOBIN 14.6 g/dL (11.5-14.8); LYMPHOCYTES # (AUTO) 1.7 /CMM (0.8-4.8); LYMPHOCYTES % (AUTO) 18.7 % (20.0-44.0); MEAN CORPUSCULAR HEMOGLOBIN 33 PG (26.0-33.0); MEAN CORPUSCULAR HGB CONC 32 g/dl (31.0-36.0); MEAN CORPUSCULAR VOLUME 100 fL (82-100); MONOCYTES # (AUTO) 0.6 /CMM (0.1-1.30); MONOCYTES % (AUTO) 6.9 % (2.0-12.0); NEUTROPHILS # (AUTO) 6.3 /CMM (1.8-8.9); NEUTROPHILS % (AUTO) 70.7 % (43.0-81.0); PLATELET COUNT (AUTO) 206 /CMM (150-450); RDW COEFFICIENT OF VARIATION 12.9 (11.5-15.0); RED BLOOD CELL COUNT(AUTO) 4.51 MIL/uL (4.0-5.2)
[2017-12-05 13:44] LABS: CALCIUM, SERUM 8.2 mg/dL (8.5-10.1); CREATININE 1.1 mg/dL (0.6-1.3); POTASSIUM 4.6 mmol/L (3.5-5.1)
[2017-12-05 13:48] LABS: INR 0.96 (0.85-1.15)
--- NOTE | 2017-12-05 15:02 | NUR ---
CALLED [facility] FOR BLS TO [facility]. SPOKE WITH ESTHER; TRIP#[phone]
--- NOTE | 2017-12-05 17:49 | NUR ---
Patient discharged to home in stable condition. Written and verbal after care instructions given. Patient verbalizes understanding of instruction.
--- NOTE | 2017-12-05 18:00 | NUR ---
IV removed. Catheter intact and site benign. Pressure and 4x4 applied to site. No bleeding noted.
[2017-12-05 18:01] VITALS: BP 125/105
== END 2017-12-05 18:02 ==
LOC: ER 12:20
DX: R51 Headache (principal); E66.01 Morbid (severe) obesity due to excess calories; I10 Essential (primary) hypertension; J45.909 Unspecified asthma, uncomplicated; F31.9 Bipolar disorder, unspecified; G40.909 Epilepsy, unspecified, not intractable, without status epilepticus; M17.10 Unilateral primary osteoarthritis, unspecified knee; F12.90 Cannabis use, unspecified, uncomplicated; Z68.43 Body mass index [BMI] 50.0-59.9, adult; Z88.5 Allergy status to narcotic agent; Z88.1 Allergy status to other antibiotic agents; Z79.899 Other long term (current) drug therapy
CPT/HCPCS: 36415; 80048; 85025; 85730; 96374; 96375; 99284; A4606; J1200; J2765; J7030; J7050; Z7610

== ENCOUNTER 2018-08-05 11:33 | Emergency (ER) | payer MEDICARE, OTHER ==
[~2018-08-05] VITALS: Ht 162.6 cm; Wt 177.8 kg
--- NOTE | 2018-08-05 11:47 | NUR ---
BIBRA 77, FROM SKILLED NURSING, C/O CP SHARP AFTER SMOKING JOINT, NON RADITING, NITRO 0.4MG AND ASA 162 MG GIVEN ON SCENE AND RELIEVED. PT AAOX4, VSS. DENIES CP, SOB, DIZZINESS, N/V, ARM/JAW PAIN, UPPER BACK PAIN @ THIS TIME. PT SEEN & EVAL'D BY DR. SOTELO. PLACED ON SPA COORDINATOR, SR & WILL CONT TO MONITOR.
[2018-08-05] MEDS ORDERED: IPRATROPIUM NEB FS 0.5 MG/2.5 ML AMPUL.NEB ONE (11:51)
[2018-08-05] MEDS ORDERED: ALBUTEROL FS 2.5 MG/3 ML VIAL.NEB ONE (11:51)
[2018-08-05] MEDS ORDERED: ASPIRIN 81 MG TAB.CHEW ONE (11:51)
--- NOTE | 2018-08-05 11:52 | NUR ---
VERBAL ORDER FROM DR. SOTELO TO GIVEN 162 MG OF ASA. PT HAD 162 MG OF ASA IN FIELD. PT BHAVIN WELL.
[2018-08-05] MEDS ORDERED: ASPIRIN 325 MG TABLET PO ONE ×2 (12:00→13:00)
[2018-08-05] MEDS ORDERED: ALBUTEROL FS 2.5 MG/3 ML VIAL.NEB NEB ONE (12:00)
[2018-08-05] MEDS ORDERED: IPRATROPIUM NEB FS 0.5 MG/2.5 ML AMPUL.NEB NEB ONE (12:00)
[2018-08-05 12:11] LABS: BASOPHILS # (AUTO) 0.1 /CMM (0.0-0.2); BASOPHILS % (AUTO) 1.7 % (0.0-2.0); EOSINOPHILS % (AUTO) 1.6 % (0.0-6.0); HEMATOCRIT 36 % (33-45); HEMOGLOBIN 12.4 g/dL (11.5-14.8); LYMPHOCYTES # (AUTO) 1.8 /CMM (0.8-4.8); LYMPHOCYTES % (AUTO) 21.1 % (20.0-44.0); MEAN CORPUSCULAR HGB CONC 34 g/dl (31.0-36.0); MEAN CORPUSCULAR VOLUME 109 fL (82-100); MONOCYTES # (AUTO) 0.6 /CMM (0.1-1.30); MONOCYTES % (AUTO) 6.3 % (2.0-12.0); NEUTROPHILS # (AUTO) 6.1 /CMM (1.8-8.9); NEUTROPHILS % (AUTO) 69.3 % (43.0-81.0); PLATELET COUNT (AUTO) 181 /CMM (150-450); RED BLOOD CELL COUNT(AUTO) 3.32 MIL/uL (4.0-5.2); WHITE BLOOD COUNT (AUTO) 8.7 K/uL (4.3-11.0)
[2018-08-05 12:14] LABS: CALCIUM, SERUM 8.3 mg/dL (8.5-10.1); CARBON DIOXIDE 34 mmol/L (21-32); CHLORIDE 98 mmol/L (98-107); CREATININE 1.1 mg/dL (0.6-1.3); GLUCOSE 88 mg/dL (74-106); POTASSIUM 4.1 mmol/L (3.5-5.1); SODIUM SERUM 135 mmol/L (136-145); UREA NITROGEN, BLOOD 27 mg/dL (7-18)
--- NOTE | 2018-08-05 12:40 | NUR ---
CALLED DR. FOFANA, SPEAKING WITH TIANNA JIMÉNEZ
--- NOTE | 2018-08-05 13:00 | NUR ---
PT ASLEEP, EASILY AWAKEN BY VERBAL STIMULI. DENIES CP, SOB, DIZZINESS, N/V, NUMBNESS OR ANY OTHER DISCOMFORT @ THIS TIME. WILL CONT TO MONITOR.
--- NOTE | 2018-08-05 13:27 | NUR ---
CALLED TRANSPORT [phone] ETA IS [phone] TRIP NUMBER [id number]
--- NOTE | 2018-08-05 14:57 | NUR ---
Patient discharged to home in stable condition. Written and verbal after care instructions given. Patient verbalizes understanding of instruction. IV removed. Catheter intact and site benign. Pressure and 4x4 applied to site. No bleeding noted.
--- NOTE | 2018-08-05 14:57 | NUR ---
PT EN ROUTE VIA BLS TO [facility]. PT STABLE DENIES ANY DISCOMFORT UPON LEAVING ED.
[2018-08-05 14:59] VITALS: BP 108/50
== END 2018-08-05 15:00 ==
LOC: ER 11:34
DX: R07.89 Other chest pain (principal); G40.909 Epilepsy, unspecified, not intractable, without status epilepticus; J45.909 Unspecified asthma, uncomplicated; I10 Essential (primary) hypertension; F31.9 Bipolar disorder, unspecified; F12.10 Cannabis abuse, uncomplicated; E66.01 Morbid (severe) obesity due to excess calories; Z88.5 Allergy status to narcotic agent; Z88.8 Allergy status to other drugs, medicaments and biological substances
CPT/HCPCS: 36415; 71045; 80048; 84484; 85025; 93005 ×2; 94640; 99284; J7030

== ENCOUNTER 2018-08-09 13:53 | Inpatient (IN) | payer MEDICARE, OTHER ==
[~2018-08-09] VITALS: Ht 162.6 cm; Wt 165.1 kg
[2018-08-09] MEDS ORDERED: SENN-18 PO (14:20)
[2018-08-09] MEDS ORDERED: POLY50DR EACHEYE (14:20)
[2018-08-09] MEDS ORDERED: CHOL100044 PO (14:20)
[2018-08-09] MEDS ORDERED: LEVO330T PO (14:20)
[2018-08-09] MEDS ORDERED: OMEP40CA37 PO (14:20)
[2018-08-09] MEDS ORDERED: FLUT1BLS IH (14:20)
[2018-08-09] MEDS ORDERED: NYST15CR2 TP (14:20)
[2018-08-09] MEDS ORDERED: CITA40TA11 PO (14:20)
[2018-08-09 15:26] LABS: BASOPHILS % (AUTO) 0.6 % (0.0-2.0); HEMATOCRIT 39 % (33-45); HEMOGLOBIN 13.4 g/dL (11.5-14.8); LYMPHOCYTES # (AUTO) 2.4 /CMM (0.8-4.8); LYMPHOCYTES % (AUTO) 29.8 % (20.0-44.0); MEAN CORPUSCULAR HGB CONC 35 g/dl (31.0-36.0); MEAN CORPUSCULAR VOLUME 109 fL (82-100); MONOCYTES # (AUTO) 0.9 /CMM (0.1-1.30); MONOCYTES % (AUTO) 11.2 % (2.0-12.0); NEUTROPHILS # (AUTO) 4.6 /CMM (1.8-8.9); NEUTROPHILS % (AUTO) 56.4 % (43.0-81.0); PLATELET COUNT (AUTO) 179 /CMM (150-450); RED BLOOD CELL COUNT(AUTO) 3.55 MIL/uL (4.0-5.2); WHITE BLOOD COUNT (AUTO) 8.1 K/uL (4.3-11.0)
[2018-08-09 15:35] LABS: CALCIUM, SERUM 8.5 mg/dL (8.5-10.1); CREATININE 0.9 mg/dL (0.6-1.3); POTASSIUM 3.8 mmol/L (3.5-5.1)
[2018-08-09 15:41] LABS: ALBUMIN 2.1 g/dL (3.4-5.0); BILIRUBIN,DIRECT 11.4 mg/dL (0.0-0.2); TOTAL PROTEIN, SERUM 6.5 g/dL (6.4-8.2)
[2018-08-09 16:43] LABS: EOSINOPHILS % (MANUAL) 1 % (0-4); LYMPHOCYTES % (MANUAL) 20 % (16-48); MONOCYTES % (MANUAL) 10 % (0-11.0); NEUTROPHILS % (MANUAL) 67 (42-76); REACTIVE LYMPHOCYTES 2 % (0-0)
[2018-08-09] MEDS ORDERED: ONDANSETRON HCL/PF 4 MG/2 ML VIAL IV PRN (23:00)
[2018-08-09] MEDS ORDERED: HYDROMORPHONE 1 MG/1 ML DISP.SYRIN IV PRN ×2 (23:00)
[2018-08-09 23:13] VITALS: BP 108/57
[2018-08-09 23:35] VITALS: BP 108/57
[2018-08-10 06:27] LABS: BASOPHILS # (AUTO) 0.2 /CMM (0.0-0.2); BASOPHILS % (AUTO) 2.7 % (0.0-2.0); EOSINOPHILS % (AUTO) 1.8 % (0.0-6.0); HEMATOCRIT 36 % (33-45); HEMOGLOBIN 12.6 g/dL (11.5-14.8); LYMPHOCYTES # (AUTO) 1.6 /CMM (0.8-4.8); LYMPHOCYTES % (AUTO) 21.2 % (20.0-44.0); MEAN CORPUSCULAR HGB CONC 35 g/dl (31.0-36.0); MEAN CORPUSCULAR VOLUME 108 fL (82-100); MONOCYTES # (AUTO) 0.7 /CMM (0.1-1.30); MONOCYTES % (AUTO) 9.1 % (2.0-12.0); NEUTROPHILS # (AUTO) 4.8 /CMM (1.8-8.9); NEUTROPHILS % (AUTO) 65.2 % (43.0-81.0); PLATELET COUNT (AUTO) 169 /CMM (150-450); RED BLOOD CELL COUNT(AUTO) 3.32 MIL/uL (4.0-5.2); WHITE BLOOD COUNT (AUTO) 7.4 K/uL (4.3-11.0)
[2018-08-10 06:39] LABS: ALBUMIN 1.9 g/dL (3.4-5.0); BILIRUBIN,TOTAL 13.8 mg/dL (0.2-1.0); CALCIUM, SERUM 8.5 mg/dL (8.5-10.1); CREATININE 0.9 mg/dL (0.6-1.3); POTASSIUM 3.8 mmol/L (3.5-5.1)
[2018-08-10 07:21] LABS: EOSINOPHILS % (MANUAL) 2 % (0-4); LYMPHOCYTES % (MANUAL) 12 % (16-48); MONOCYTES % (MANUAL) 9 % (0-11.0); NEUTROPHILS % (MANUAL) 77 (42-76)
[2018-08-10 08:33] VITALS: BP 93/47
[2018-08-10] MEDS: HYDROCHLOROTHIAZIDE 25 MG TABLET PO SCH (09:00)
[2018-08-10] MEDS ORDERED: POLYVINYL ALCOHOL 15 ML BOTTLE EACHEYE PRN (09:00)
[2018-08-10] MEDS: ARIPIPRAZOLE 5 MG TABLET PO SCH (09:48)
[2018-08-10] MEDS: PANTOPRAZOLE 40 MG TABLET.DR PO SCH (09:48)
[2018-08-10] MEDS: LEVOCARNITINE 330 MG TABLET PO SCH ×3 (09:49→17:09)
[2018-08-10] MEDS: CITALOPRAM HYDROBROMIDE 20 MG TABLET PO SCH (09:56)
[2018-08-10] MEDS: BENZTROPINE MESYLATE (1 MG) 1 MG TABLET PO SCH ×2 (09:57→17:09)
[2018-08-10] MEDS: DIVALPROEX SODIUM 500 MG TABLET.DR PO SCH ×2 (09:57→21:47)
[2018-08-10] MEDS: FOLIC ACID 1 MG TABLET PO SCH (09:57)
[2018-08-10] MEDS: CHOLECALCIFEROL 1,000 UNIT TABLET (VIT D3) PO SCH (09:58)
[2018-08-10] MEDS: NYSTATIN/TRIAMCIN CREAM 15 GM TUBE TP SCH ×2 (10:02→17:11)
[2018-08-10] MEDS: POLYETHYLENE GLYCOL 3350 17 GM POWD.PACK PO SCH (10:02)
[2018-08-10] MEDS: GABAPENTIN 100 MG CAPSULE PO SCH ×2 (10:02→17:09)
[2018-08-10 16:12] VITALS: BP 115/65
[2018-08-10] MEDS: FLUTICASONE/VILANTEROL 1 EACH BLST.W.DEV IH SCH (17:08)
[2018-08-10] MEDS ORDERED: IV NS 0.9% 1,000 ML BAG IV PRN (18:00)
[2018-08-10] MEDS ORDERED: IV NS 0.9% 1,000 ML IV PRN (18:30)
[2018-08-10 20:00] VITALS: BP 116/52
[2018-08-10] MEDS ORDERED: TRAZODONE 50 MG TABLET PO SCH (22:00)
[2018-08-10] MEDS ORDERED: GABAPENTIN 300 MG CAPSULE PO SCH (22:00)
[2018-08-10] MEDS ORDERED: SENNOSIDES 8.6 MG TABLET PO SCH (22:00)
[2018-08-10] MEDS ORDERED: LISINOPRIL (5MG) 5 MG TABLET PO SCH (22:00)
[2018-08-11 07:02] LABS: BASOPHILS # (AUTO) 0.2 /CMM (0.0-0.2); BASOPHILS % (AUTO) 2.8 % (0.0-2.0); HEMATOCRIT 36 % (33-45); HEMOGLOBIN 12.7 g/dL (11.5-14.8); LYMPHOCYTES # (AUTO) 1.9 /CMM (0.8-4.8); LYMPHOCYTES % (AUTO) 27.6 % (20.0-44.0); MEAN CORPUSCULAR HGB CONC 35 g/dl (31.0-36.0); MEAN CORPUSCULAR VOLUME 107 fL (82-100); MONOCYTES # (AUTO) 0.6 /CMM (0.1-1.30); MONOCYTES % (AUTO) 8.1 % (2.0-12.0); NEUTROPHILS % (AUTO) 58.5 % (43.0-81.0); PLATELET COUNT (AUTO) 168 /CMM (150-450); RED BLOOD CELL COUNT(AUTO) 3.35 MIL/uL (4.0-5.2); WHITE BLOOD COUNT (AUTO) 6.9 K/uL (4.3-11.0)
[2018-08-11 07:24] LABS: ALBUMIN 1.8 g/dL (3.4-5.0); BILIRUBIN,TOTAL 13.6 mg/dL (0.2-1.0); CALCIUM, SERUM 8.7 mg/dL (8.5-10.1); CREATININE 0.8 mg/dL (0.6-1.3); POTASSIUM 4.1 mmol/L (3.5-5.1)
[2018-08-11] MEDS: PANTOPRAZOLE 40 MG TABLET.DR PO SCH (07:30)
[2018-08-11 07:54] LABS: BAND % (MANUAL) 2 % (0.0-5.0); BASOPHILS % (MANUAL) 1 % (0.0-2.0); EOSINOPHILS % (MANUAL) 4 % (0-4); LYMPHOCYTES % (MANUAL) 26 % (16-48); MONOCYTES % (MANUAL) 8 % (0-11.0); NEUTROPHILS % (MANUAL) 59 (42-76)
[2018-08-11 08:00] VITALS: BP 110/66
[2018-08-11] MEDS: FLUTICASONE/VILANTEROL 1 EACH BLST.W.DEV IH SCH (08:38)
[2018-08-11] MEDS: NYSTATIN/TRIAMCIN CREAM 15 GM TUBE TP SCH (08:38)
[2018-08-11] MEDS: LEVOCARNITINE 330 MG TABLET PO SCH ×3 (09:00→13:33)
[2018-08-11] MEDS: POLYETHYLENE GLYCOL 3350 17 GM POWD.PACK PO SCH (13:08)
[2018-08-11] MEDS: ARIPIPRAZOLE 5 MG TABLET PO SCH (13:30)
[2018-08-11] MEDS: CHOLECALCIFEROL 1,000 UNIT TABLET (VIT D3) PO SCH (13:30)
[2018-08-11] MEDS: BENZTROPINE MESYLATE (1 MG) 1 MG TABLET PO SCH (13:31)
[2018-08-11] MEDS: DIVALPROEX SODIUM 500 MG TABLET.DR PO SCH (13:31)
[2018-08-11] MEDS: CITALOPRAM HYDROBROMIDE 20 MG TABLET PO SCH (13:31)
[2018-08-11] MEDS: GABAPENTIN 100 MG CAPSULE PO SCH (13:31)
[2018-08-11] MEDS: FOLIC ACID 1 MG TABLET PO SCH (13:31)
[2018-08-11] MEDS: HYDROCHLOROTHIAZIDE 25 MG TABLET PO SCH (13:32)
[2018-08-11 16:00] VITALS: BP 110/47
== END 2018-08-11 16:15 | DRG 445 ==
LOC: ER 13:58 → MED 22:02
PROVIDERS: ADMIT Internal Medicine; ATTEND Internal Medicine
DX: K80.20 Calculus of gallbladder without cholecystitis without obstruction (principal); E66.2 Morbid (severe) obesity with alveolar hypoventilation; K74.60 Unspecified cirrhosis of liver; J45.909 Unspecified asthma, uncomplicated; K75.81 Nonalcoholic steatohepatitis (NASH); G40.909 Epilepsy, unspecified, not intractable, without status epilepticus; I10 Essential (primary) hypertension; M43.17 Spondylolisthesis, lumbosacral region; Z79.899 Other long term (current) drug therapy; Z79.51 Long term (current) use of inhaled steroids; Z88.3 Allergy status to other anti-infective agents; Z88.5 Allergy status to narcotic agent; F31.9 Bipolar disorder, unspecified; E80.6 Other disorders of bilirubin metabolism; F12.90 Cannabis use, unspecified, uncomplicated
CPT/HCPCS: 36415; 76705-TC; 80048-TC; 80053-TC; 80076-TC; 83690-TC; 85025-TC; 85610-TC; 85730-TC; 87081-TC; G0378; J7030

== ENCOUNTER 2018-08-17 23:17 | Emergency (ER) | payer MEDICARE, OTHER ==
[~2018-08-17] VITALS: Ht 162.6 cm; Wt 171.5 kg
[~2018-08-17 23:17] MED LIST changes: -CHOL10002 PO; +CHOL100044 PO; -FLUT16SP BNOSTRILS; +NYST15CR2 TP; +OMEP40CA37 PO; -PANT40TA2 PO; -POLY15DR40 EACHEYE; +POLY50DR EACHEYE; +SENN-18 PO
--- NOTE | 2018-08-17 23:26 | NUR ---
PT BIBRA FROM SNF FOR ABD PAIN; PT AAOX4, PT ON MONITOR, VSS, NAD NOTED, PENDING MD HAMILTON
[2018-08-18] MEDS ORDERED: IV NS 0.9% 1,000 ML BAG IV ONE
--- NOTE | 2018-08-18 00:02 | NUR ---
URINE COLLECTED AND SENT TO LAB
--- NOTE | 2018-08-18 00:23 | NUR ---
ADDENDUM: Intravenous End Time Documentation: Normal saline 1 liter (IV-WO) : start time: 0023 am ; end time: 0123 am: IV site: [facility]# 20 Port # 1
[2018-08-18 00:27] LABS: CALCIUM, SERUM 8.6 mg/dL (8.5-10.1); CARBON DIOXIDE 31 mmol/L (21-32); CHLORIDE 94 mmol/L (98-107); CREATININE 2.6 mg/dL (0.6-1.3); GLUCOSE 91 mg/dL (74-106); POTASSIUM 3.6 mmol/L (3.5-5.1); SODIUM SERUM 132 mmol/L (136-145); UREA NITROGEN, BLOOD 39 mg/dL (7-18)
[2018-08-18 00:34] LABS: ALANINE AMINOTRANSFERASE 61 U/L (12-78); ALBUMIN 2.1 g/dL (3.4-5.0); ALCOHOL, BLOOD < 3 mg/dL (0-0); ALKALINE PHOSPHATASE 451 U/L (46-116); ASPARTATE AMINOTRANSFERASE 120 U/L (15-37); BILIRUBIN,DIRECT 15.5 mg/dL (0.0-0.2); BILIRUBIN,TOTAL 19.5 mg/dL (0.2-1.0); TOTAL PROTEIN, SERUM 6.6 g/dL (6.4-8.2)
[2018-08-18 00:35] LABS: ACETAMINOPHEN 0 ug/ml (10-30); SALICYLATE < 0.2 mg/dL (2.8-20.0)
[2018-08-18 00:39] LABS: HEMATOCRIT 40 % (33-45); HEMOGLOBIN 13.8 g/dL (11.5-14.8); MEAN CORPUSCULAR HGB CONC 35 g/dl (31.0-36.0); MEAN CORPUSCULAR VOLUME 109 fL (82-100); PLATELET COUNT (AUTO) 166 /CMM (150-450); RED BLOOD CELL COUNT(AUTO) 3.63 MIL/uL (4.0-5.2); WHITE BLOOD COUNT (AUTO) 9.5 K/uL (4.3-11.0)
[2018-08-18 00:55] LABS: APPEARANCE,URINE Cloudy (CLEAR); BILIRUBIN,URINE LARGE (NEGATIVE); BLOOD, URINE Large Ery/uL (NEGATIVE); COLOR,URINE Amber (YELLOW); KETONES,URINE Trace (NEGATIVE); LEUKOCYTE ESTERASE ,URINE Large (NEGATIVE); NITRITE, URINE Negative (NEGATIVE); PROTEIN,URINE 100 mg/dl (NEGATIVE); UGLUCOSE 100 MG/DL mg/dL (NEGATIVE)
[2018-08-18 01:24] LABS: EOSINOPHILS % (MANUAL) 5 % (0-4); LYMPHOCYTES % (MANUAL) 20 % (16-48); MONOCYTES % (MANUAL) 2 % (0-11.0); NEUTROPHILS % (MANUAL) 73 (42-76)
[2018-08-18 01:25] LABS: BACTERIA,URINE Few /HPF (None Seen); SQUAMOUS EPITHELIAL CELL,UR Few /HPF (None Seen); WBC,URINE 81-100 /HPF (0-3)
[2018-08-18] MEDS ORDERED: IV NS 0.9% 1,000 ML IV PRN (02:00)
[2018-08-18] MEDS ORDERED: CEFTRIAXONE 1GM BAG (ER ONLY) 1 GM/50 ML PIGGYBACK IV ONE (02:00)
[2018-08-18] MEDS ORDERED: CEFTRIAXONE 1GM BAG (ER ONLY) 50 ML IV ONE (02:06)
--- NOTE | 2018-08-18 02:42 | NUR ---
VITA NITESH AT
--- NOTE | 2018-08-18 03:20 | NUR ---
XR being done at bedside
[2018-08-18] MEDS ORDERED: IV D5/0.45 NACL 1,000 ML IV ONE (03:30)
[2018-08-18 04:02] LABS: CALCIUM, SERUM 8.6 mg/dL (8.5-10.1); CREATININE 2.3 mg/dL (0.6-1.3); POTASSIUM 3.7 mmol/L (3.5-5.1)
[2018-08-18] MEDS ORDERED: VALPROIC ACID 250 MG/5 ML UDC PO ONE (06:00)
--- NOTE | 2018-08-18 06:21 | NUR ---
CALLED [facility] FOR TRANSPORT ETA OF [phone] WAS GIVEN. TRIP#[id number]
[2018-08-18] MEDS ORDERED: VALPROIC ACID 250 MG/5 ML UDC ONE (06:26)
--- NOTE | 2018-08-18 06:35 | NUR ---
RESTING IN BED COMFORTABLY W/ NO S/S OF DISTRESS, WILL CONT TO MONITOR,
--- NOTE | 2018-08-18 09:22 | NUR ---
DIAPER CHANGED PERICARE PROVIDED, PATIENT ABLE TO TURN SIDE TO SIDE. WAITING FOR AMBULANCE.
--- NOTE | 2018-08-18 09:54 | NUR ---
PATIENT A/OX3, NO DISTRESS, DISCHARGE INSTRUCTIONS PROVIDED AND VERBALIZED UNDERSTANDING. AMBULANCE CAME AND GAVE REPORT TO ELEMENTARY ELL TEACHER. PATIENT LEFT IN STABLE CONDITION, TRANSFERRED TO SNF.
[2018-08-18 09:59] VITALS: BP 110/54
--- NOTE | 2018-08-21 10:36 | NUR ---
RESULTS FAXED TO [facility] W[facility]LE[facility], , EDWIN MEJIA,OCCUPATIONAL SAFETY SPECIALIST
--- NOTE | 2018-08-31 19:23 | NUR ---
LATE ENTRY FOR 08/18/18 END INFUSION FOR NS: 0123
== END 2018-08-18 10:00 ==
LOC: ER 23:18
DX: N39.0 Urinary tract infection, site not specified (principal); N28.9 Disorder of kidney and ureter, unspecified; K76.9 Liver disease, unspecified; R79.89 Other specified abnormal findings of blood chemistry; F31.9 Bipolar disorder, unspecified; G40.909 Epilepsy, unspecified, not intractable, without status epilepticus; I10 Essential (primary) hypertension; E66.01 Morbid (severe) obesity due to excess calories; F12.10 Cannabis abuse, uncomplicated; Z88.5 Allergy status to narcotic agent; Z88.6 Allergy status to analgesic agent
CPT/HCPCS: 36415; 71045; 74021; 76705; 80048 ×2; 80076; 80164; 80305; 80307; 81001; 83690; 84703; 85025; 85730; 87040 ×2; 87077 ×2; 87086; 87186 ×2; 96365; 96367; 99284; G0480; J0696; J3490; J7030 ×2; 81000-TC

== ENCOUNTER 2018-08-25 12:26 | Inpatient (IN) | payer MEDICARE, OTHER ==
[~2018-08-25] VITALS: Ht 162.6 cm; Wt 166.5 kg
[2018-08-25] VITALS (35 sets, daily range): BP systolic 65–128; BP diastolic 32–69
--- NOTE | 2018-08-25 12:26 | NUR ---
PT RERE FROM SNF FOR AMS, PT USUALLY ALERT AND ORIENTED, PTON MONITOR, VSS, NAD NOTED,PENDING MD HAMILTON
[2018-08-25 12:54] LABS: ABG BASE EXCESS -3.4 mmol/L; ABG OXYGEN SATURATION 99.1 % (92.0-98.5); ABG PCO2 65.7 mmHg (35.0-45.0); ABG PH 7.209 (7.350-7.450); ABG PO2 241.1 mmHg (75.0-100.0); AaDO2 260.3 mmHg; MetHb 0.5 % (0.0-1.5); O2Hb 97.6 % (94.0-97.0); SITE, ABG Right Radial; VENT MODE, BG NON REBREATHER
[2018-08-25] MEDS ORDERED: CEPH500C2 PO (13:16)
--- NOTE | 2018-08-25 13:24 | NUR ---
got bed 256 icu
[2018-08-25 13:54] LABS: BASOPHILS % (AUTO) 0.3 % (0.0-2.0); EOSINOPHILS % (AUTO) 0.8 % (0.0-6.0); HEMATOCRIT 36 % (33-45); HEMOGLOBIN 12.2 g/dL (11.5-14.8); LYMPHOCYTES # (AUTO) 2.1 /CMM (0.8-4.8); LYMPHOCYTES % (AUTO) 22.4 % (20.0-44.0); MEAN CORPUSCULAR HGB CONC 34 g/dl (31.0-36.0); MEAN CORPUSCULAR VOLUME 111 fL (82-100); MONOCYTES # (AUTO) 0.7 /CMM (0.1-1.30); MONOCYTES % (AUTO) 7.5 % (2.0-12.0); NEUTROPHILS # (AUTO) 6.4 /CMM (1.8-8.9); PLATELET COUNT (AUTO) 128 /CMM (150-450); RED BLOOD CELL COUNT(AUTO) 3.23 MIL/uL (4.0-5.2); WHITE BLOOD COUNT (AUTO) 9.3 K/uL (4.3-11.0)
[2018-08-25 13:57] LABS: CALCIUM, SERUM 8.8 mg/dL (8.5-10.1); CARBON DIOXIDE 27 mmol/L (21-32); CHLORIDE 98 mmol/L (98-107); CREATININE 4.5 mg/dL (0.6-1.3); GLUCOSE 76 mg/dL (74-106); POTASSIUM 4.6 mmol/L (3.5-5.1); SODIUM SERUM 135 mmol/L (136-145); UREA NITROGEN, BLOOD 64 mg/dL (7-18)
[2018-08-25 14:02] LABS: BILIRUBIN,URINE LARGE (NEGATIVE); BLOOD, URINE Negative Ery/uL (NEGATIVE); KETONES,URINE Trace (NEGATIVE); LEUKOCYTE ESTERASE ,URINE Negative (NEGATIVE); NITRITE, URINE Negative (NEGATIVE); PH,URINE 5.5 (5.0-8.0); PROTEIN,URINE 100 mg/dl (NEGATIVE); UGLUCOSE 100 MG/DL mg/dL (NEGATIVE)
[2018-08-25 14:03] LABS: APPEARANCE,URINE Cloudy (CLEAR)
[2018-08-25 14:04] LABS: COLOR,URINE Amber (YELLOW)
[2018-08-25 14:10] LABS: ALANINE AMINOTRANSFERASE 38 U/L (12-78); ALBUMIN 1.8 g/dL (3.4-5.0); ALKALINE PHOSPHATASE 456 U/L (46-116); ASPARTATE AMINOTRANSFERASE 81 U/L (15-37); B-TYPE NATRIURETIC PEPTIDE 886 PG/ML (0-125); BILIRUBIN,DIRECT 15.3 mg/dL (0.0-0.2); BILIRUBIN,TOTAL 19.1 mg/dL (0.2-1.0); TOTAL PROTEIN, SERUM 5.7 g/dL (6.4-8.2)
[2018-08-25 14:11] LABS: BACTERIA,URINE Few /HPF (None Seen); RBC,URINE 0-3 /HPF (0-2); SQUAMOUS EPITHELIAL CELL,UR Few /HPF (None Seen); URINE AMORPHOUS URATE Few /HPF (None Seen)
--- NOTE | 2018-08-25 14:13 | NUR ---
REPORT GIVEN TO NAMITA GORDON FOR EBONI; PT WILL BE TRANSPORTED TO ICU VIA ACLS PROTOCOL
[2018-08-25 14:27] LABS: EOSINOPHILS % (MANUAL) 1 % (0-4); LYMPHOCYTES % (MANUAL) 13 % (16-48); MONOCYTES % (MANUAL) 14 % (0-11.0); NEUTROPHILS % (MANUAL) 72 (42-76)
[2018-08-25] MEDS ORDERED: IMIPENEM/CILASTATIN 500 MG in IV NS 0.9% 100 ML IV SCH (14:30)
[2018-08-25] MEDS ORDERED: MEROPENEM 500 MG in IV NS 0.9% 50 ML IV SCH (14:30)
--- NOTE | 2018-08-25 14:32 | NUR ---
PT PULLED OUT PIV ON LEFT AC 20G
--- NOTE | 2018-08-25 15:00 | NUR ---
RN NOTES RECEIVED PT FROM ER IN ROOM 256, PT IS LETHARGIC , BUT AROUSABLE, ORIENTED TO NAME AND PLACE, ON BIPAP, O2 SAT 100%, ON TELE SB HR IN 50'S , NORWOOD DRINING TO GRAVITY WITH SMALL AMOUNT OF DARK JARRED COLOR URINE, R HAND IV G 20 AND AND L AC IV G 20 , SITES CLEAN, DRY AND INTACT, REDNESS TO SACRUM AND PERINEAL AREA NOTED, SKIN PHOTO TAKEN AND PLACED IN THE CHART, SR UP x3, CALL LIGHT WITHIN EASY REACH, BED LOCKED AND IN LOWEST POSITION, CONTINUE TO MONITOR .
[2018-08-25] MEDS: IV D5/ 0.9% NACL 1,000 ML IV PRN ×2 (16:11→16:13)
[2018-08-25 16:21] LABS: ABG BASE EXCESS -2.8 mmol/L; ABG OXYGEN SATURATION 97.1 % (92.0-98.5); ABG PCO2 70.8 mmHg (35.0-45.0); ABG PH 7.194 (7.350-7.450); ABG PO2 110.9 mmHg (75.0-100.0); COHb 0.8 % (0.5-1.5); MetHb 0.6 % (0.0-1.5); O2Hb 95.7 % (94.0-97.0); SITE, ABG Right Radial
--- NOTE | 2018-08-25 16:45 | NUR ---
RT Pt was intubated by Dr. Barahona with a 7.5 ETT secured at 24cm at the lip line. Positive color change on CO2 detector observed. Equal bilateral breath sounds and chest rise noted. DIRECTOR OF STUDENT FINANCIAL AID cuff pressure noted. Pt placed on vent with noted settings by Dr. Torres. Vent alarms are set and audible with BVM by bedside. Vent is plugged into red outlet. Sx'd large thick blood tinged secretions. Addendum: 08/25/18 at 1701 by ANDRÉS BLANCO RT Amended: Links added.
[2018-08-25] MEDS ORDERED: IV NS 0.9% 500 ML IV ONE ×2 (17:00→18:00)
[2018-08-25] MEDS ORDERED: PROPOFOL 100 ML IV PRN (17:00)
[2018-08-25] MEDS: NOREPINEPHRINE 8 MG in IV D5W 500 ML IV PRN (17:12)
[2018-08-25] MEDS ORDERED: ETOMIDATE 2 MG/ML VIAL IV ONE (17:18)
[2018-08-25] MEDS ORDERED: SUCCINYLCHOLINE CHLORIDE 20 MG/ML VIAL IV ONE (17:18)
--- NOTE | 2018-08-25 17:49 | NUR ---
RN NOTE 1645: ABG resulted, RT made Dr. Torres aware. S/E by Dr. Torres, with order for intubation. Called ER MD. SBP 70's with order for 500mL NS bolus. 1700: Successfully intubated by Dr. Barahona, with 10 Etomidate, another 10 Etomidate after 5 min followed by 120 Succs. 1710: Dr. Torres seen CXR result, in satisfactory position per MD. MD ordered for OGT, PICC insertion. Patient tolerated OGT placement. Tried to contact family, Bryan sister number is not working, [place] but they also have same number, unable to contact. ABle to get notebooks from belongings with numbers, tried to call but no answers. Informed Dr. Torres, to get emergency PICC, per ER MD, he wants to talk to Dr. Torres, Dr. Torres made aware but then per Dr. Gong, he will do the Central line. Made Dr. Torres aware. MD ordered another 500mL bolus for SBP 70's. 1745: SBP >90 at this time, bolus ongoing. Dr Gong at bedside right now.
[2018-08-25] MEDS ORDERED: Z GUARD REMEDY 2 OZ OINT TP PRN (18:30)
--- NOTE | 2018-08-25 18:46 | NUR ---
RN NOTE 7495: Dr. Gong placed RIJ TLC. MD aware for the CXR SP Central line placement, said ok to use, placed Levo IVF and Dip in the TLC running. Called RT for ABG.
--- NOTE | 2018-08-25 18:46 | NUR ---
RN NOTES PT IS INTUBATED ,TOLERATING VENT SETTING WELL, O2 SAT 100%, WILL ENDORSE TO NAILER HAND NURSE FOR CONTINUITY OF CARE .
[2018-08-25 18:58] LABS: ABG BASE EXCESS -0.8 mmol/L; ABG OXYGEN SATURATION 99.4 % (92.0-98.5); ABG PCO2 32.1 mmHg (35.0-45.0); ABG PH 7.459 (7.350-7.450); ABG PO2 370.5 mmHg (75.0-100.0); AaDO2 310.4 mmHg; COHb 0.5 % (0.5-1.5); MetHb 0.5 % (0.0-1.5); O2Hb 98.4 % (94.0-97.0); SITE, ABG Right Radial
--- NOTE | 2018-08-25 19:00 | NUR ---
LINER MAN NOTES Received patient orally intubated to the ventilator on AC mode, sedated on Propofol drip but still responsive, + cough ,+ gag, grimaces to pain, moves all extremities, maintained on bilateral soft wrist restraints. Triple lumen catheter at right subclavian on Levophed drip for BP support. OGT clamped ,+ placement by auscultation. Patient obese, icteric skin, icteric sclera. [place] catheter with tea colored urine. Noted heart rate to by bradycardic in the 40's, 2030 Placed on Bariatric bed, tolerated well,remains stable. Comfort care done. No pressure injury noted, but with erythema /redness at sacral and perineal area.
--- NOTE | 2018-08-25 19:20 | NUR ---
@7540 ABG DONE POST INTUBATION. NOTIFIED NAMITA GORDON WITH THE RESULT. DR SOLAN NOTIFIED. VENT CHANGES PER DR SLOAN. RATE TO 14, FIO2 TO 50%.
[2018-08-25] MEDS: PROPOFOL 100 ML IV PRN ×2 (19:45→22:30)
--- NOTE | 2018-08-25 20:42 | NUR ---
RECEIVED PT INTUBATED 7.5 ETT SECURED AT 24CM AT THE LIP VIA ANCHOR FAST. PT IS ON ESPRIT VENT NO DISTRESS. TOLERATING SETTINGS. SX'D FOR MOD AMT OF THICK TINGED SECRETIONS. VENT ALARMS SET AND AUDIBLE. AMBU BAG AT BEDSIDE. VENT PLUGGED INTO RED OUTLET. WILL CONTINUE TO MONITOR. Addendum: 08/25/18 at 2043 by AWA BERGMAN RT Amended: Links added.
--- NOTE | 2018-08-25 22:00 | NUR ---
LACE CUTTER NOTES BP labile ,Levophed titrated up . heart rate remains bradycardic in the 40's, still on mild sedation ,easily awakens ,gets a little agitated when stimulated.Also noted patient to be having PVC's when Levophed drip is titrated up .Will closely monitor as Levophed drip is titrated.
[2018-08-25] MEDS: HEPARIN SODIUM, PORCINE 5000 UNITS/1 ML VIAL SQ SCH (22:07)
[2018-08-26] VITALS (112 sets, daily range): BP systolic 44–136; BP diastolic 23–107
[2018-08-26] MEDS: IV D5/ 0.9% NACL 1,000 ML IV PRN (01:23)
[2018-08-26] MEDS: PROPOFOL 100 ML IV PRN ×6 (01:24→20:51)
--- NOTE | 2018-08-26 02:00 | NUR ---
BP drastically dropped into the 40's-50's systolic.(from 90/51 at 0145). Levophed rip titratrated up q 5 mins . till reached maximium dose of 40 mcg/min.Weaned down Propofol drip till off (until BP improves). Patient also noted to be less responsive ,with only slight cough noted when stimulated.Put in a call to Dr. Curran's service to update on patient's condition and obtain further orders.
[2018-08-26] MEDS ORDERED: NOREPINEPHRINE 4 MG/4 ML AMPUL IV ONE (02:01)
[2018-08-26] MEDS: ATROPINE SULFATE 1 MG/10 ML DISP.SYRIN ONE ×3 (02:27→02:38)
[2018-08-26] MEDS ORDERED: ATROPINE SULFATE INJ 1 MG/ML VIAL IV ONE (02:30)
--- NOTE | 2018-08-26 02:30 | NUR ---
Bp still low in the 50's systolic and heart rate still low ,now as low as 42-43. still no answer from Dr. Curran. Nursing order takers supervisor ( in the unit) as per her ,per ACLS protocol we can give Atropine for symptomatic bradycardia if no response from MD or we can paged MOD internal communications intern . MOD paged( from [employer]). Gavino Omer answered page,referred about patient's status, ordered to give Atropine 0.5 mg (1/2 amp) IVP now and if no response may also start Dopamine drip for both BP and heart rate support.
--- NOTE | 2018-08-26 02:31 | NUR ---
Atropine 0.5 mg IVP given. 0236 BP slowly improving and Heart rate in the 50's -60's. Levophed drip still at maximum dose 40 mcg/min. Noted to be having very frequent PVC's ,at times bigeminy and trigeminy. 0248 BP, Heart improving but still with very frequent PVC's. Titrated Levophed down ,patient started to be agitated/ restless. Slowly started back Propofol drip.
[2018-08-26] MEDS: NOREPINEPHRINE 8 MG in IV D5W 500 ML IV PRN ×3 (02:53→16:58)
--- NOTE | 2018-08-26 04:00 | NUR ---
BP stable on Levophed drip @ 16 mcg/min. Propofol now at 20 mcg/kg/min,patient arousable ,gets a little agitated when awakens. Heart rate now back in the 40's-50's.
[2018-08-26] MEDS: HEPARIN SODIUM, PORCINE 5000 UNITS/1 ML VIAL SQ SCH ×3 (05:11→20:31)
--- NOTE | 2018-08-26 07:00 | NUR ---
Report given to mony Rossi.
--- NOTE | 2018-08-26 07:05 | NUR ---
LIFT TEAM TECHNICIAN NOTES RECEIVED PT ON BED,SEDATED, ORALLY INTUBATED, TOLERATING CURRENT VENT SETTING WELL,ON TELE SB , HR IN 50'S , NORWOOD DRINING TO GRAVITY, WITH JARRED COLOR URINE, OG TUBE INTACT AND CLAMPED, R UPPER CHEST TLC IV SITE CLEAN ,DRY AND INTACT, PT ON [facility] BED, VSS STABLE AT THIS TIME, SR UP x3, CALL LIGHT WITHIN EASY REACH, BED LOCKED AND IN LOWEST POSITION, CONTINUE TO MONITOR.
[2018-08-26 07:54] LABS: ALBUMIN 1.7 g/dL (3.4-5.0); BILIRUBIN,TOTAL 20.9 mg/dL (0.2-1.0); CALCIUM, SERUM 9.1 mg/dL (8.5-10.1); CREATININE 3.4 mg/dL (0.6-1.3); POTASSIUM 3.2 mmol/L (3.5-5.1)
--- NOTE | 2018-08-26 07:56 | NUR ---
RT PATIENT REC'D ORALLY INTUBATED ON [facility] VENT WITH ORDERED SETTINGA BHAVIN WELL. VENT ALARMS CHECKED + AUDIBLE. CUFF PRESSURE CHECKED MEDICAID ELIGIBILITY SPECIALIST. PATIENT SUCTIONED WITH SMALL AMT OF PALE SEMITHICK SECRETIONS. B/S DIM. LINGU BAG AT HOB Addendum: 08/26/18 at 1000 by JAN KEYES RT Amended: Links added.
--- NOTE | 2018-08-26 07:58 | NUR ---
WOUND CARE CONSULT: PT PRESENTS WITH SPOTTY RASH TO ABDOMEN AND SOME SPOTS TO LEGS, PRESENT ON ADMISSION. SKIN FOLDS ARE MOIST BUT SKIN IS INTACT. JAUNDICED COLOR NOTED. RECOMMENDATIONS MADE FOR SKIN PROTECTION. DISCUSSED WITH NURSING STAFF. PT ON [facility] AIR BED. WILL SEE PRN. JIMÉNEZ IN AGREEMENT WITH PLAN OF CARE. PT CURRENTLY INTUBATED WITH BRENDA SCORE OF 10. Addendum: 08/26/18 at 0801 by NILDA LEYVA WNDNU Amended: Links added.
[2018-08-26 08:45] LABS: ABG BASE EXCESS -0.4 mmol/L; ABG OXYGEN SATURATION 95.1 % (92.0-98.5); ABG PCO2 40.9 mmHg (35.0-45.0); ABG PH 7.395 (7.350-7.450); AaDO2 192.3 mmHg; COHb 0.5 % (0.5-1.5); MetHb 0.5 % (0.0-1.5); O2Hb 94.1 % (94.0-97.0); PEEP,BG 0 cm H2O; SITE, ABG Right Radial; VENT MODE, BG ac 14 700 45%
[2018-08-26] MEDS: POTASSIUM CL. PREMIX PERIPHER. 50 ML IV SCH ×2 (09:46→10:45)
[2018-08-26] MEDS ORDERED: MEROPENEM 500 MG in IV NS 0.9% 50 ML IV ONE (11:30)
--- NOTE | 2018-08-26 11:47 | NUR ---
RN NOTES DR FOFANA NOTIFED REGARDING [id number]=[id number] . ORDER RECEIVED TO CONTINUE HEPARIN SQ.
--- NOTE | 2018-08-26 12:10 | NUR ---
RN NOTES DR SLOAN NOTIFED REGARDING PROCALCITONIN 1.54
[2018-08-26] MEDS: IV NS 0.9% 1,000 ML IV PRN (12:21)
[2018-08-26 13:33] LABS: APPEARANCE,URINE SL CLOUDY (CLEAR); BILIRUBIN,URINE 3+ (NEGATIVE); BLOOD, URINE 2+ Ery/uL (NEGATIVE); COLOR,URINE AMBER (YELLOW); KETONES,URINE NEGATIVE (NEGATIVE); LEUKOCYTE ESTERASE ,URINE NEGATIVE (NEGATIVE); NITRITE, URINE NEGATIVE (NEGATIVE); PH,URINE 6.5 (5.0-8.0); PROTEIN,URINE 1+ mg/dl (NEGATIVE); UGLUCOSE NEGATIVE (NEGATIVE); UROBILINOGEN,URINE 0.2 EU/dL (0.2)
[2018-08-26 13:35] LABS: CREATININE, URINE 39.7 MG/DL (30.0-125.0); URINE TOTAL PROTEIN 62.4 mg/dL (0-11.9)
[2018-08-26 13:55] LABS: BACTERIA,URINE Few /HPF (None Seen); SQUAMOUS EPITHELIAL CELL,UR 0-2 /HPF (None Seen); WBC,URINE 0-2 /HPF (0-3)
[2018-08-26 14:31] LABS: EOSINOPHIL,URINE None Seen
--- NOTE | 2018-08-26 15:00 | NUR ---
RN NOTES ORAL AND ETT SUCTIONING DONE , VSS STABLE, CONTINUE TO MONITOR .
--- NOTE | 2018-08-26 18:15 | NUR ---
RN NOTES PT STILL SEDATED, ON DIPRIVAN GTT, NORWOOD DRINING TO GRAVITY WITH LARGE AMOUNT OF JARRED COLOR URINE, LEVO AT 19 MCG/MIN . SR UP X3, BED LOCKED AND IN LOWEST POSITION , WILL ENDORSE TO SAP MANAGER NURSE FOR CONTINUITY OF CARE .
[2018-08-26] MEDS ORDERED: DOPamine 400 MG/D5W 250 ML RTU PIGGYBACK IV ONE (18:30)
--- NOTE | 2018-08-26 19:30 | NUR ---
RN NOTES RECEIVED PT SEDATED, ORALLY INTUBATED WITH ETT 7.5 AND 24 CM AT LIP. CONNECTED TO VENT SETTING AC 14 TV 700 FIO2 45% NO PEEP. PT IS AROUSABLE ON PAIN. RESPONSIVE TO TACTILE STIMULI. AFEBRILE. NO ACUTE RESPIRATORY DISTRESS. TELE MONITOR REVEALS SR HR 95. BILATERAL UPPER LOBE WITH CRACKLES BILATERAL LOWER LOBE DIMINISHED. PT IS ON OGT PATENCY CHECKED. IV SITE ON RFA , LAC AND RIGHT HAND AND RIJ TLC RUNNIGN WITH DOPAMINE AT 5 MCG/KG/MIN AND DIPRIVAN @ 25 MCG/KG/MIN TITRATED PROTOCOL AND IVF NS @ 60 ML.HR C/D/I. PT REMAINED SEDATED. TURNED AND REPOSITIONED FOR SKIN MANAGEMENT. F/C DRAINED WITH JARRED COLOR URINE OFF FROM FLOOR. KEPT PT CLEAN AND COMFORTABLE IN BED. WILL CONTINUE TO MONITOR.
[2018-08-26] MEDS: MEROPENEM 500 MG in IV NS 0.9% 100 ML IV SCH (20:30)
[2018-08-26] MEDS ORDERED: DOPamine 400 MG/D5W 250 ML RTU PIGGYBACK IV PRN ×2 (20:30→21:00)
--- NOTE | 2018-08-26 20:53 | NUR ---
SPOKE TO PT FRIEND RENATO LEVY [phone], SHE GAVE PTS NEPHEW'S PHONE NUMBER JESSICA DIALLO [phone], SHE LEFT MESSAGE FOR NEPHEW, NO CALL BACK YET
[2018-08-26] MEDS: DOPamine 400 MG in IV D5W 250 ML IV PRN (21:13)
[2018-08-27] VITALS (86 sets, daily range): BP systolic 53–141; BP diastolic 31–105
[2018-08-27] MEDS: DOPamine 400 MG in IV D5W 250 ML IV PRN ×5 (00:10→19:24)
[2018-08-27] MEDS: PROPOFOL 100 ML IV PRN ×7 (00:11→23:41)
[2018-08-27] MEDS ORDERED: DOPamine 400MG/D5W 250ML RTU 250 ML IV ONE (04:58)
[2018-08-27 05:05] LABS: BASOPHILS # (AUTO) 0.1 /CMM (0.0-0.2); EOSINOPHILS % (AUTO) 1.4 % (0.0-6.0); HEMATOCRIT 41 % (33-45); HEMOGLOBIN 14.3 g/dL (11.5-14.8); LYMPHOCYTES # (AUTO) 1.7 /CMM (0.8-4.8); LYMPHOCYTES % (AUTO) 18.2 % (20.0-44.0); MEAN CORPUSCULAR HGB CONC 35 g/dl (31.0-36.0); MEAN CORPUSCULAR VOLUME 107 fL (82-100); MONOCYTES # (AUTO) 1.2 /CMM (0.1-1.30); MONOCYTES % (AUTO) 12.3 % (2.0-12.0); NEUTROPHILS # (AUTO) 6.3 /CMM (1.8-8.9); NEUTROPHILS % (AUTO) 67.1 % (43.0-81.0); PLATELET COUNT (AUTO) 171 /CMM (150-450); RED BLOOD CELL COUNT(AUTO) 3.81 MIL/uL (4.0-5.2); WHITE BLOOD COUNT (AUTO) 9.4 K/uL (4.3-11.0)
[2018-08-27] MEDS: HEPARIN SODIUM, PORCINE 5000 UNITS/1 ML VIAL SQ SCH ×2 (05:09→21:33)
[2018-08-27 05:24] LABS: MAGNESIUM 1.7 mg/dL (1.8-2.4); PHOSPHORUS 2.6 mg/dL (2.5-4.9)
[2018-08-27] MEDS: IV NS 0.9% 1,000 ML IV PRN ×2 (06:05→23:42)
--- NOTE | 2018-08-27 06:48 | NUR ---
RN NOTES PATIENT REMAINED SEDATED. ETT AND VENT SETTING TOLERATED WELL. NSR ON TELE MONITOR. SATURATION >95%. NO SIGNIFICANT EBONI THROUGHOUT THE SHIFT. CONTINUE WITH PROPOFOL AND DOPAMINE TITRATED ORDERED, EFFECTIVE. IV SITE RFA, LAC, RH C/D/I AND RIJ TLC DRESSING CHANGED. NORWOOD CATH DRAINED WITH LARGE AMOUNT JARRED COLOR URINE. CONTINUE WITH ISOLATION FOR ESBL URINE. KEPT PT CLEAN AND DRY. WILL ENDORSED CONTINUITY OF CARE TO AM NURSE.
[2018-08-27 09:25] LABS: ABG BASE EXCESS 1.6 mmol/L; ABG PH 7.408 (7.350-7.450); ABG PO2 72.3 mmHg (75.0-100.0); AaDO2 199.6 mmHg; COHb 0.5 % (0.5-1.5); MetHb 0.5 % (0.0-1.5); O2Hb 92.1 % (94.0-97.0); PEEP,BG 0 cm H2O; SITE, ABG Right Radial; VT, ABG 700 mL
[2018-08-27] MEDS: MEROPENEM 500 MG in IV NS 0.9% 100 ML IV SCH ×2 (09:29→21:31)
[2018-08-27 09:37] LABS: ALBUMIN 1.6 g/dL (3.4-5.0); BILIRUBIN,TOTAL 20.5 mg/dL (0.2-1.0); CALCIUM, SERUM 9.4 mg/dL (8.5-10.1); POTASSIUM 3.4 mmol/L (3.5-5.1)
[2018-08-27 12:23] LABS: ALBUMIN 1.6 g/dL (3.4-5.0); BILIRUBIN,TOTAL 20.8 mg/dL (0.2-1.0); CALCIUM, SERUM 9.3 mg/dL (8.5-10.1); CREATININE 1.8 mg/dL (0.6-1.3); POTASSIUM 3.4 mmol/L (3.5-5.1); TOTAL PROTEIN, SERUM 6.1 g/dL (6.4-8.2)
--- NOTE | 2018-08-27 12:27 | NUR ---
ARCELIA was informed by ICU CRAntonio Agarwal that they are trying to locate family. Per nurse's note, pt. has a nephew named Khoa . ARCELIA left a voicemail message for Khoa requesting a callback. Addendum: 08/27/18 at 1231 by KAREEN PANIAGUA ARCELIA contacted ICU CRAntonio Agarwal who informed ARCELIA that pt's sister Marguerite contacted them regarding the pt.
[2018-08-27] MEDS: POTASSIUM CHLORIDE 20 MEQ POWDER PACKET GT SCH (18:48)
--- NOTE | 2018-08-27 19:20 | NUR ---
RECEIVED PT INTUBATED 7.5 ETT SECURED @ 24CM AT THE LIP ON THE VENT WITH NOTED SETTINGS. PT IS SEDATED. SX'D MODERATE AMT OF THICK YELLOW SECRETIONS. VENT ALARMS SET AND AUDIBLE. AMBU BAG AT BEDSIDE. VENT PLUGGED INTO RED OUTLET. WILL CONTINUE TO MONITOR. NO RESPIRATORY DISTRESS NOTED AT THIS TIME. WILL CONTINUE TO MONITOR THE PT.
--- NOTE | 2018-08-27 19:35 | NUR ---
RN NOTES PT ORALLY INTUBATED WITH ETT 7.5 AND 24 CM AT LIP WITH VENT SETTING AC 14 TV 700 FIO2 45% NO PEEP. PT IS SEDATED WITH DIPRIVAN BUT RESPONSIVE TO TACTILE STIMULI. AFEBRILE. NO ACUTE RESPIRATORY DISTRESS. SR HR 60'S. PT IS ON OGT PATENCY CHECKED. IV SITE ON RFA G 20 , LAC G 20 AND RIGHT HAND G 20 AND RIJ TLC C/D/I RIJ RUNNING WITH DOPAMINE AT 6 MCG/KG/MIN , DIPRIVAN @ 30 MCG/KG/MIN TITRATED PROTOCOL AND IVF NS @ 60 ML/HR. WITH POSITIVE AND STRONG PERIPHERAL PULSES. OFFLOADED EXT WITH PILLOWS. T/R PRN AND Q2H . F/C DRAINED WITH JARRED COLOR URINE OFF FROM THE FLOOR. CONTINUE TO MONITOR.
[2018-08-28] VITALS (86 sets, daily range): BP systolic 79–162; BP diastolic 40–86
[2018-08-28] MEDS: DOPamine 400 MG in IV D5W 250 ML IV PRN ×4 (02:29→22:44)
[2018-08-28] MEDS: PROPOFOL 100 ML IV PRN ×2 (02:30→05:11)
[2018-08-28] MEDS: HEPARIN SODIUM, PORCINE 5000 UNITS/1 ML VIAL SQ SCH ×3 (05:13→21:25)
[2018-08-28 05:42] LABS: BASOPHILS # (AUTO) 0.2 /CMM (0.0-0.2); BASOPHILS % (AUTO) 1.6 % (0.0-2.0); EOSINOPHILS % (AUTO) 2.4 % (0.0-6.0); HEMATOCRIT 45 % (33-45); HEMOGLOBIN 15.6 g/dL (11.5-14.8); LYMPHOCYTES # (AUTO) 1.3 /CMM (0.8-4.8); LYMPHOCYTES % (AUTO) 10.7 % (20.0-44.0); MEAN CORPUSCULAR HGB CONC 35 g/dl (31.0-36.0); MEAN CORPUSCULAR VOLUME 107 fL (82-100); MONOCYTES % (AUTO) 8.3 % (2.0-12.0); NEUTROPHILS # (AUTO) 9.2 /CMM (1.8-8.9); PLATELET COUNT (AUTO) 167 /CMM (150-450); RED BLOOD CELL COUNT(AUTO) 4.16 MIL/uL (4.0-5.2)
[2018-08-28 05:53] LABS: CALCIUM, SERUM 9.4 mg/dL (8.5-10.1); CREATININE 1.4 mg/dL (0.6-1.3); MAGNESIUM 1.4 mg/dL (1.8-2.4); PHOSPHORUS 2.8 mg/dL (2.5-4.9); POTASSIUM 2.9 mmol/L (3.5-5.1)
[2018-08-28] MEDS ORDERED: DOSE PER PHARMACY (MD SPECIFY MEDICATION) 1 EA XX PRN (06:30)
[2018-08-28] MEDS ORDERED: Potassium Chloride 20 MEQ in IV NS 0.9% 1,000 ML IV PRN (06:30)
--- NOTE | 2018-08-28 06:35 | NUR ---
RN NOTES 0523 AM - PT RHYTHM CHANGED FROM SINUS TO BIGEMINY WITH THE HR WENT DOWN TO 39. BMP AND EKG STAT ORDERED WITH THE RESULT OF SR W/ FREQUENCY PREMATURE VENTRICULAR COMPLEXES IN A PATTERN OF BIGEMINIY NON SPECIFIC ST AND T WAVE ABNORMALITY AND LAB VALUES OF POTASSIUM 2.9 ANS MAGNESIUM 1.[address] FOFANA WITH ORDER TO PHARMACY TO ADJUST THE POTASSIUM AND ADD 20 MEQ OF KCL TO IV INFUSION AND MAGNESIUM SULFATE 3G IV DAILY FOR 2 DAYS. NOTED AND CARRIED OUT ORDERS. 0645 AM - PATIENT REMAINED SEDATED WITH DIPRIVAN TITRATED PROTOCOL. IV SITE REMAINED INTACT AND PATENT. DOPAMINE CONTINUE TITRATED ORDERED. F/C DRAINED ADEQUATELY WITH JARRED COLOR URINE. KEPT PT CLEAN AND DRY. ENDORSED CONTINUITY OF CARE TO AM NURSE.
--- NOTE | 2018-08-28 07:43 | NUR ---
RT PT REC'D ON VENT VIA 7.5 ETT AT 24CM AT THE LIP. PT IS SEDATED YET RESPONDS TO STIMULI. PT HAS A GOOD GAG REFLEX WITH SX. SX THICK TANNISH SECRETIONS. SIMV TRIAL PER DR. SLOAN ORDERED ONCE PT IS OFF SEDATION AND FOLLOWING COMMANDS. NO RESP. DISTRESS NOTED AT THE MOMENT. VENT PLUGGED INTO RED OUTLET. AMBU BAG AT HOB. ALARMS SET AND AUDIBLE PER POLICY. Addendum: 08/28/18 at 0747 by ASHER CONTRERAS RT Amended: Links added.
[2018-08-28] MEDS: POTASSIUM CL. PREMIX PERIPHER. 50 ML IV SCH ×4 (07:46→10:50)
[2018-08-28] MEDS: Magnesium 1GM/D5W 100ML PREMIX 100 ML IV SCH ×3 (07:46→09:59)
--- NOTE | 2018-08-28 08:48 | NUR ---
received pt from night filler, sedated on diprivan at 30mcg, SR, on the vent, lungs partially congested, some edema, OG clamped, f/c OK output, receiving dopamine at 5mcg, restraints on, v/s stable, no pain, pt turned and repositioned.
[2018-08-28] MEDS: POTASSIUM CHLORIDE 20 MEQ POWDER PACKET GT SCH (08:56)
--- NOTE | 2018-08-28 09:00 | NUR ---
pt is on SIMV mode.
--- NOTE | 2018-08-28 09:06 | NUR ---
RT PT PLACED ON SIMV MODE AT 08:55. PT IS AWAKE AND ALERT. FOLLOWING COMMANDS. PT TOLERATING VENT CHANGES WELL SO FAR. HEIDI AUGUST AWARE OF THE SIMV TRIAL. ALARMS ADJUSTED AND AUDIBLE. Addendum: 08/28/18 at 0908 by ASHER CONTRERAS RT Amended: Links added.
[2018-08-28] MEDS: MEROPENEM 500 MG in IV NS 0.9% 100 ML IV SCH (09:27)
--- NOTE | 2018-08-28 10:30 | NUR ---
RT PT PLACED ON CPAP TRIAL PER DR. DONOHUE. ABG IN 30 MINS. Addendum: 08/28/18 at 1041 by ASHER CONTRERAS RT Amended: Links added.
--- NOTE | 2018-08-28 10:30 | NUR ---
pt tolerated SIMV now on CPAP mode.
[2018-08-28 11:11] LABS: *SPE A/G RATIO 0.6 (0.7-1.7); *SPE ALBUMIN 2.1 g/dL (2.9-4.4); *SPE ALPHA-1-GLOBULIN 0.3 g/dL (0.0-0.4); *SPE ALPHA-2-GLOBULIN 0.6 g/dL (0.4-1.0); *SPE BETA GLOBULIN 1.1 g/dL (0.7-1.3); *SPE GLOBULIN, TOTAL 3.3 g/dL (2.2-3.9); *SPE M-SPIKE Not Observed g/dL (Not Observed); *SPEGAMMA GLOBULIN 1.3 g/dL (0.4-1.8)
[2018-08-28 11:29] LABS: ABG BASE EXCESS -0.5 mmol/L; ABG OXYGEN SATURATION 94.1 % (92.0-98.5); ABG PCO2 49.6 mmHg (35.0-45.0); ABG PH 7.338 (7.350-7.450); ABG PO2 82.6 mmHg (75.0-100.0); AaDO2 109.3 mmHg; COHb 0.9 % (0.5-1.5); MetHb 0.6 % (0.0-1.5); O2Hb 92.7 % (94.0-97.0); PEEP,BG 5 cm H2O; SITE, ABG Right Radial
--- NOTE | 2018-08-28 11:40 | NUR ---
pt is extubated, v/s stable, alert, follows commands.
--- NOTE | 2018-08-28 11:40 | NUR ---
RT PT EXTUBATED PER DR. DONOHUE ORDERS. NO STRIDOR PRESENT. PT PLACED ON 6LPM NASAL CANNULA.
--- NOTE | 2018-08-28 12:19 | NUR ---
pt in resting in the bed, alert, follows commands, SR, on 5L 02, sat well, v/s stable, no pain, pt turned and repositioned q2hrs.
[2018-08-28 13:21] LABS: PTH, INTACT 17 pg/mL (15-65)
--- NOTE | 2018-08-28 16:08 | NUR ---
pt is resting in the bed, alert, follows commands, SR, on 5L 02 sat well, v/s stable, no pain, pt cleaned, changed and repositioned q2hrs.
[2018-08-28] MEDS: IV NS 0.9% 1,000 ML IV PRN (18:18)
--- NOTE | 2018-08-28 19:44 | NUR ---
RCVD PT ON 5L NC . PT PLACED ON NOCTURNAL BIPAP PER MD'S ORDER. IPAP 15, EPAP 5, RATE 14, 35% . BIPAP PLUGGED INTO RED OUTLET, ALARMS ON AND AUDIBLE. AMBU BAG AT BEDSIDE. NO RESPIRATORY DISTRESS NOTED AT THIS TIME. WILL CONTINUE TO MONITOR THE PT.
--- NOTE | 2018-08-28 19:45 | NUR ---
ICU/COLOR DIPPER RECEIVED REPORT FROM DAY NURSE. SEE FLOWSHEET FOR ASSESSMENT ALONG WITH ALL SKIN ISSUES WHICH ARE ADDRESSES AND EACH INTERVENTIONS TO THEM. PT CURRENTLY HAS NS@60ML AND DOPA TO KEEP SBP ABOVE 90. PT IS ALERT X 2, WITH PERIODS OF CONFUSION AND FORGETFULNESS. PT HAS N/C AT 5 LITERS, WITH SATURATION AT 93-95%. PT WS TURNED AND REPOSITIONED FOR COMFORT AND CARE. WILL CONTINUE TO MONITOR THIS PT.NO ACUTE DISTRESS SEEN AT THIS TIME.
--- NOTE | 2018-08-28 19:55 | NUR ---
ICU/MANAGER ARMY PT IS TO BE PLACED ON BIPAP AT NIGHT, SAT'S ARE LOW 90'S DUE TO LARGE ABD. BIPAP IS STARTING NOW WITH 15/5, RATE 14, FIO2 35%. WILL CONTINUE TO MONITOR THIS PT AND HER SATURATION.
--- NOTE | 2018-08-28 20:20 | NUR ---
ICU/GEAR NICKER PT C/O OF NAUSEA AND VOMITING. NO PRN MEDICATION OF ZOFRAN SEEN. CALLED MD TO GET ORDER FOR THIS. AKILA ABREU CALLED BACK ON CT BEHALF. GAVE ORDERS FOR ZOFRAN 4 MG IVP Q 4 HRS PRN N/V, ALSO BECAUSE PT IS HAVING PAIN AND BEING PLACED ON BIPAP, TORADOL 30MG IV Q 4 HRS PRN FOR PAIN. NOTIFIED CHARGE NURSE WHO THEN NOTED THE ORDERS FOR BOTH AND GAVE THE ZOFRAN IVP OF 4 MG. WILL CONTINUE TO MONITOR THIS PT.
--- NOTE | 2018-08-28 20:30 | NUR ---
ICU/AWS SOLUTION ARCHITECT ALSO AT THIS TIME AKILA ABREU GAVE ORDERS FOR AM LABS TOO. THESE WERE NOTED BY THE CHARGE NURSE.
[2018-08-28] MEDS ORDERED: KETOROLAC TROMETHAMINE INJ 30 MG/ML VIAL IV PRN (21:00)
[2018-08-28] MEDS: ONDANSETRON HCL/PF 4 MG/2 ML VIAL IV PRN (21:10)
--- NOTE | 2018-08-28 22:30 | NUR ---
ICU/ENERGY CONSERVATION ENGINEER PT WENT FROM BIPAP TO N/C, DUE TO PT VERBALIZED THAT SHE LIKES VOMITING WHICH ON THE MASK. WILL CONTINUE TO MONITOR THIS PT.
--- NOTE | 2018-08-28 23:10 | NUR ---
ICU/LEARNING DISABILITIES RESOURCE TEACHER BIPAP PLACED BACK ON THE PT. FIO2 WAS INCREASED TO 50% FROM THE ORIGINAL 30%. THIS WAS DUE TO PT'S LOW SATURATION OF 89%. MD ORDER WAS TO KEEP SATURATION ABOVE 94%.
--- NOTE | 2018-08-28 23:45 | NUR ---
ICU/CNC APPLICATIONS ENGINEER PT'S BLOOD PRESSURE IS STABLE AT 132/72, DOPA WAS DECREASED DOWN TO 4MCG FROM 6. WILL CONTINUE TO MONITOR THIS PT.
[2018-08-29] VITALS (81 sets, daily range): BP systolic 61–150; BP diastolic 39–89
--- NOTE | 2018-08-29 01:24 | NUR ---
ICU/PAPER MACHINE SUPERVISOR PT WAS MOANING IN PAIN, TORADOL WAS GIVEN FOR PAIN TO BACK. PAIN IS RATED 7/10. WILL CONTINUE TO MONITOR THIS PT AND HER PAIN. PT IS ON A ROTATION BED WHICH TURNS THE PT FROM SIDE TO SIDE.
--- NOTE | 2018-08-29 02:50 | NUR ---
ICU/COLLECTION SPECIALIST PT WAS GIVEN AM CARE, ALONG WITH ORAL CARE. PT REMAINS ON CURRENT BIPAP SETTINGS WITH SATURATION AT 98% PT IS ON A TURNING AND ROTATING BED. NO ACUTE DISTRESS SEEN AT THIS TIME. PT APPEARS TO BE RESTING COMFORTABLE.
[2018-08-29] MEDS: ONDANSETRON HCL/PF 4 MG/2 ML VIAL IV PRN ×2 (04:02→11:21)
--- NOTE | 2018-08-29 04:10 | NUR ---
ICU/SWEETBREAD TRIMMER PT COMPLAINED ABOUT NAUSEA, NOTIFIED CHARGE NURSE WHO THEN GAVE ZOFRAN IVP. WILL CONTINUE TO MONITOR THIS PT.
[2018-08-29] MEDS: HEPARIN SODIUM, PORCINE 5000 UNITS/1 ML VIAL SQ SCH ×3 (04:40→21:19)
[2018-08-29 05:33] LABS: BASOPHILS % (AUTO) 0.3 % (0.0-2.0); EOSINOPHILS % (AUTO) 0.5 % (0.0-6.0); HEMATOCRIT 42 % (33-45); HEMOGLOBIN 13.8 g/dL (11.5-14.8); LYMPHOCYTES # (AUTO) 3.2 /CMM (0.8-4.8); LYMPHOCYTES % (AUTO) 23.3 % (20.0-44.0); MEAN CORPUSCULAR HGB CONC 33 g/dl (31.0-36.0); MEAN CORPUSCULAR VOLUME 111 fL (82-100); MONOCYTES % (AUTO) 7.7 % (2.0-12.0); NEUTROPHILS # (AUTO) 9.3 /CMM (1.8-8.9); NEUTROPHILS % (AUTO) 68.2 % (43.0-81.0); PLATELET COUNT (AUTO) 135 /CMM (150-450); RED BLOOD CELL COUNT(AUTO) 3.77 MIL/uL (4.0-5.2); WHITE BLOOD COUNT (AUTO) 13.6 K/uL (4.3-11.0)
[2018-08-29 05:58] LABS: CALCIUM, SERUM 9.3 mg/dL (8.5-10.1); CREATININE 1.4 mg/dL (0.6-1.3); MAGNESIUM 2.1 mg/dL (1.8-2.4); PHOSPHORUS 5.3 mg/dL (2.5-4.9); POTASSIUM 3.6 mmol/L (3.5-5.1)
[2018-08-29] MEDS ORDERED: Magnesium 1GM/D5W 100ML PREMIX 100 ML IV SCH (06:30)
[2018-08-29 07:03] LABS: LYMPHOCYTES % (MANUAL) 12 % (16-48); MONOCYTES % (MANUAL) 7 % (0-11.0); NEUTROPHILS % (MANUAL) 81 (42-76)
--- NOTE | 2018-08-29 07:42 | NUR ---
ICU/LAND MANAGER FROM RADIOLOGY CALLED TO NOTIFY NURSE THAT THE RIGHT IJ IS NOT IN PLACE. DAY NURSE IS AWARE. MADE RECOMMENDATIONS TO HAVE IT ADVANCE OR REMOVE. CHARGE NURSE MARIANGEL IS AWARE.
--- NOTE | 2018-08-29 07:50 | NUR ---
REGISTERED NURSE CARDIAC INITIAL NOTES RECEIVED PT ON 5 L VIA NC. PT A/O X2-3 HOWEVER LETHARGIC. VSS AT THIS TIME. SHE DENIES ANY PAIN. NO SOB OR ACUTE SIGNS OF DISTRESS NOTED. BREATHING IS EVEN AND UNLABORED. PT SINUS RHYTHM, ON THE MONITOR WITH A HR OF 63. NORWOOD CATHETER NOTED TO BE DRAINING TO GRAVITY. PER NIGHTSHIFT RN AND RADIOLOGIST, PT'S RIGHT IJ S NOT IN THE CORRECT POSITIONING, CHARGE NURSE NOTIFIED NURSING APPAREL TRIMMINGS SALES REPRESENTATIVE FOR PICC LINE INSERTION. BED IN LOW LOCKED POSITION, SIDE RAILS UP X3, CALL LIGHT WITHIN REACH. WILL CONTINUE TO MONITOR
[2018-08-29 08:56] LABS: ABG BASE EXCESS -2.2 mmol/L; ABG OXYGEN SATURATION 93.7 % (92.0-98.5); ABG PCO2 61.4 mmHg (35.0-45.0); ABG PH 7.249 (7.350-7.450); ABG PO2 82.7 mmHg (75.0-100.0); AaDO2 131.9 mmHg; COHb 0.8 % (0.5-1.5); MetHb 0.5 % (0.0-1.5); O2Hb 92.5 % (94.0-97.0); SITE, ABG Left Radial
[2018-08-29] MEDS: POTASSIUM CHLORIDE 20 MEQ POWDER PACKET GT SCH (09:00)
--- NOTE | 2018-08-29 09:00 | NUR ---
RT POST ABG RESULTS PATIENT WAS PLACED BACK ON BIPAP. RN AWARE. Addendum: 08/29/18 at 1005 by JAN KEYES RT Amended: Links added.
[2018-08-29] MEDS: IV NS 0.9% 1,000 ML IV PRN (11:03)
[2018-08-29] MEDS: DOPamine 400 MG in IV D5W 250 ML IV PRN ×3 (11:06→22:56)
--- NOTE | 2018-08-29 11:59 | NUR ---
SUPERVISOR COLOR PASTE MIXING NOTES: MAG REPLACEMENT MAG HELD PT WAS AWAITING PICC LINE INSERTION. PT HAS A CURRENT MAG OF 2.1 AFTER REPLACEMENTS WERE COMPLETED YESTERDAY AND EARLY THIS MORNING. DR FOFANA CALLED IN REGARDS TO LAST 2 BAGS AND IF HE WOULD LIKE TO CONTINUE WITH INFUSIONS GIVEN CURRENT MAG LEVEL. TELEPHONE ORDER OBTAINED BY MD TO INFUSE BOTH BAGS. PER MD "RESULTS OF REPLACEMENTS WILL ONLY BE ACCURATE WITHIN 24-48HRS POST INFUSION"
[2018-08-29] MEDS: Magnesium 1GM/D5W 100ML PREMIX 100 ML IV SCH ×2 (12:26→13:22)
[2018-08-29 14:35] LABS: ABG BASE EXCESS -2.9 mmol/L; ABG OXYGEN SATURATION 93.1 % (92.0-98.5); ABG PCO2 62.8 mmHg (35.0-45.0); ABG PH 7.234 (7.350-7.450); ABG PO2 79.5 mmHg (75.0-100.0); AaDO2 206.4 mmHg; COHb 0.9 % (0.5-1.5); MetHb 0.5 % (0.0-1.5); O2Hb 91.8 % (94.0-97.0); SITE, ABG Right Radial; VENT MODE, BG BIPAP 15/5 R14 50%
--- NOTE | 2018-08-29 14:42 | NUR ---
RT POST REPEAT ABG RESULTS BIPAP SETTINGS ADJUSTED PER DR SMITH TO 31/08 R18. RN AWARE Addendum: 08/29/18 at 1443 by JAN KEYES RT Amended: Links added.
--- NOTE | 2018-08-29 14:45 | NUR ---
PYTHON PROGRAMMER NOTES: 1430 ABG/ BIPAP SETTINGS RESULTS OF ABG RELAYED BACK TO DR. DONOHUE. ALSO MADE AWARE THAT PT'S BIPAP SETTINGS WERE ADJUSTED BY THE RT TO HER PREVIOUS SETTINGS. NO NEW ORDERS GIVEN BY
--- NOTE | 2018-08-29 16:00 | NUR ---
GENERAL OPERATIONS AGENT NOTES: MD ROUNDING DR FOFANA AT BEDSIDE AND MADE AWARE OF PT'S CONDITION AND RECENT LABS. MD SUGGESTS THAT PT SHOULD BE INTUBATED. DR. DONOHUE MADE AWARE AND AGREES TO INTUBATION. ER NOTIFIED
--- NOTE | 2018-08-29 17:15 | NUR ---
TANK CARPENTER NOTES: INTUBATION PT SUCCESSFULLY INTUBATED BY DR CHENG AT 1653. TWO UNSUCCESSFUL ATTEMPTS MADE PRIOR BY DR BASS. PT HAS AN ETT 7.5, 23 AT THE LIP, RATE SET TO 18, TIDAL VOLUME 600, FIO2 60% AND A PEEP OF 5. PT TOLERATING SETTINGS WELL. BILATERAL SOFT WRIST RESTRAINTS ORDERED. DIPRIVAN INFUSION INITIATED OG TUBE PLACED AT TIME OF INTUBATION. POSITIVE PLACEMENT VERIFIED VIA CHEST X-RAY
[2018-08-29] MEDS: PROPOFOL 100 ML IV PRN ×2 (17:16→21:02)
--- NOTE | 2018-08-29 17:28 | NUR ---
RT NOTE ER DOCTOR KALI CALLED UP TO INTUBATE, @1626 TRIED TWICE, WAS UNSUCCESSFUL, @0688 DR. CHENG SUCCESSFULLY INTUBATES WITH ETT 7.5MM AT 23CM LIP LINE, EQUAL BILATERAL CHEST RISE OBSERVED, BREATH SOUNDS AUSCULTATED, GOOD COLOR CHANGE, ETT SECURED AND IN PLACE, ALARMS ON AND AUDIBLE, VENT PLUGGED IN RED OUTLET, BVM BY BEDSIDE. ABG TO FOLLOW IN 1 HOUR.
[2018-08-29] MEDS ORDERED: SUCCINYLCHOLINE CHLORIDE 20 MG/ML VIAL IV ONE (18:00)
[2018-08-29] MEDS ORDERED: ETOMIDATE 2 MG/ML VIAL IV ONE (18:00)
[2018-08-29 18:20] LABS: ABG BASE EXCESS -2.5 mmol/L; ABG OXYGEN SATURATION 98.4 % (92.0-98.5); ABG PCO2 45.6 mmHg (35.0-45.0); ABG PH 7.332 (7.350-7.450); ABG PO2 135.1 mmHg (75.0-100.0); AaDO2 532.3 mmHg; COHb 0.7 % (0.5-1.5); MetHb 0.4 % (0.0-1.5); O2Hb 97.3 % (94.0-97.0); PEEP,BG 5 cm H2O; SITE, ABG Right Radial; VENT MODE, BG A/C; VT, ABG 600 mL
--- NOTE | 2018-08-29 19:02 | NUR ---
SHEET WRITER CLOSING NOTES PT STABLE S/P INTUBATION. VSS. PT SEDATED IN DIPRIVAN DRIP AT 15MIC/MIN/KG. SHE IS ALSO RECEIVING DOPAMINE INFUSION AT 6MIC/HR AND TOLERATING WELL. VSS. RIGHT UPPER ARM PICC REMAINS PATENT AND INTACT. NO REDNESS OR SIGNS OF INFILTRATION NOTED. VENT SETTINGS REMAIN DICTATED PRIOR. PT CONTINUES TOLERATING SETTING WELL. SAFETY AND ISOLATION PRECAUTIONS REMAIN IN PLACE. ENDORSED TO NIGHTSHIFT HEIDI LYN
--- NOTE | 2018-08-29 19:45 | NUR ---
ICU/DRILL RIG OPERATOR HELPER RECEIVED REPORT FROM DAY NURSE. SEE FLOWSHEET FOR ASSESSMENT AND ANY SKIN ISSUES WHICH ARE ADDRESSES WITH EACH INTERVENTIONS TO THEM. PT CURRENTLY HAS NS@60ML, DOPA, TO KEEP SBP GREATER THAN 90, DIP FOR SEDATION TO TO INTUBATION, SEE IV SPREADSHEET FOR RATES AND TITRATION. . PT IS SEDATED. PT IS ORALLY INTUBATED, TOLERATING CURRENT VENT SETTINGS WITH SATURATION AT 99%. PT WS TURNED AND REPOSITIONED FOR COMFORT AND CARE. WILL CONTINUE TO MONITOR THIS PT.NO ACUTE DISTRESS SEEN AT THIS TIME.
--- NOTE | 2018-08-29 21:50 | NUR ---
PT RECEIVED INTUBATED 7.5 ETT SECURED AT 23CM AT THE LIP. NO RESP DISTRESS. PT TOLERATING VENT SETTINGS. SX'D FOR MOD AMT OF THIN TINGED SECRETIONS. VENT ALARMS SET AND AUDIBLE. AMBU BAG AT BEDSIDE. VENT PLUGGED INTO RED OUTLET. WILL CONTINUE TO MONITOR. Addendum: 08/29/18 at 2152 by AWA BERGMAN RT Amended: Links added.
[2018-08-30] VITALS (104 sets, daily range): BP systolic 53–152; BP diastolic 32–80
[2018-08-30] MEDS: PROPOFOL 100 ML IV PRN ×4 (03:16→19:00)
[2018-08-30 04:56] LABS: BASOPHILS # (AUTO) 0.3 /CMM (0.0-0.2); BASOPHILS % (AUTO) 1.6 % (0.0-2.0); EOSINOPHILS % (AUTO) 1.6 % (0.0-6.0); HEMATOCRIT 43 % (33-45); HEMOGLOBIN 14.9 g/dL (11.5-14.8); LYMPHOCYTES # (AUTO) 3.5 /CMM (0.8-4.8); LYMPHOCYTES % (AUTO) 16.9 % (20.0-44.0); MEAN CORPUSCULAR HGB CONC 35 g/dl (31.0-36.0); MEAN CORPUSCULAR VOLUME 107 fL (82-100); MONOCYTES # (AUTO) 1.5 /CMM (0.1-1.30); MONOCYTES % (AUTO) 7.2 % (2.0-12.0); NEUTROPHILS # (AUTO) 15.1 /CMM (1.8-8.9); NEUTROPHILS % (AUTO) 72.7 % (43.0-81.0); PLATELET COUNT (AUTO) 153 /CMM (150-450); RED BLOOD CELL COUNT(AUTO) 4.03 MIL/uL (4.0-5.2); WHITE BLOOD COUNT (AUTO) 20.8 K/uL (4.3-11.0)
[2018-08-30 05:00] LABS: BAND % (MANUAL) 3 % (0.0-5.0); EOSINOPHILS % (MANUAL) 3 % (0-4); LYMPHOCYTES % (MANUAL) 16 % (16-48); METAMYELOCYTES % 1 % (0-0); MONOCYTES % (MANUAL) 4 % (0-11.0); NEUTROPHILS % (MANUAL) 73 (42-76)
[2018-08-30 05:07] LABS: CREATININE 2.2 mg/dL (0.6-1.3); MAGNESIUM 2.7 mg/dL (1.8-2.4); PHOSPHORUS 3.6 mg/dL (2.5-4.9)
[2018-08-30] MEDS: IV NS 0.9% 1,000 ML IV PRN ×2 (05:13→19:01)
[2018-08-30] MEDS: DOPamine 400 MG in IV D5W 250 ML IV PRN ×4 (05:13→21:46)
[2018-08-30] MEDS: HEPARIN SODIUM, PORCINE 5000 UNITS/1 ML VIAL SQ SCH ×3 (05:14→20:29)
--- NOTE | 2018-08-30 07:35 | NUR ---
SENIOR LEAD JAVA DEVELOPER INITIAL NOTES RECEIVED PT INTUBATED ON MECHANICAL VENT. ETT 7.5, 23 AT THE LIP, AC 18, TV 600, FIO2 60%, PEEP 5. PT TOLERATING VENT SETTINGS WELL. NO SOB OR ACUTE SIGNS OF DISTRESS NOTED. BREATHING IS EVEN AND UNLABORED. PT SINUS RHYTHM ON THE MONITOR WITH A HR OF 72. NORWOOD CATHETER NOTED TO BE DRAINING TO GRAVITY. RIGHT UPPER ARM PICC LINE NOTED TO BE PATENT AND INTACT. NO REDNESS OR SIGNS OF INFILTRATION NOTED. PT TOLERATING IV DRIPS AT SET RATE WELL. BED IN LOW LOCKED POSITION, SIDE RAILS UP X3, ISOLATION PRECAUTIONS MAINTAINED. WILL CONTINUE TO MONITOR
--- NOTE | 2018-08-30 07:40 | NUR ---
RT PATIENT REC'D ORALLY INTUBATED ON MECH VENT. VENT ALARMS CHECKED + AUDIBLE. PATIENT SUCTIONED WITH MOD AMT OF MOREIRA SEMITHICK SECRETIONS. AMBU BAG AT HOB. Addendum: 08/30/18 at 1745 by JAN KEYES RT Amended: Links added.
[2018-08-30] MEDS: POTASSIUM CHLORIDE 20 MEQ POWDER PACKET GT SCH (08:01)
[2018-08-30 08:29] LABS: ABG OXYGEN SATURATION 94.6 % (92.0-98.5); ABG PCO2 34.9 mmHg (35.0-45.0); ABG PH 7.415 (7.350-7.450); ABG PO2 78.4 mmHg (75.0-100.0); COHb 0.5 % (0.5-1.5); MetHb 0.6 % (0.0-1.5); O2Hb 93.6 % (94.0-97.0); SITE, ABG Right Radial
[2018-08-30] MEDS ORDERED: PANTOPRAZOLE 40 MG TABLET.DR PO SCH (09:30)
[2018-08-30] MEDS ORDERED: POTASSIUM CHLORIDE 20 MEQ POWDER PACKET NG SCH (10:30)
[2018-08-30] MEDS: CEFEPIME 2 GM in IV D5W 100 ML IV SCH (11:00)
[2018-08-30 13:15] LABS: BILIRUBIN,DIRECT 10.1 mg/dL (0.0-0.2); TOTAL PROTEIN, SERUM 4.3 g/dL (6.4-8.2)
[2018-08-30] MEDS: LACTULOSE 10 G/15 ML UDC (PYXIS) PO SCH ×2 (13:19→17:46)
[2018-08-30 13:21] LABS: ALBUMIN 0.9 g/dL (3.4-5.0)
--- NOTE | 2018-08-30 13:36 | NUR ---
TISSUE COORDINATOR NOTES: MD ROUNDING (DR. FOFANA) DR FOFANA AT BEDSIDE AND MADE AWARE OF LATEST VITAL SIGNS, RECENT LABS INCLUDING CRITICAL ALBUMIN, PT'S LITTLE TO NO URINE OUTPUT, AND OVERALL CONDITION. PER MD "PT'S ALBUMIN LEVEL IS AN INDICATION OF THE SEVERITY OF HER DISEASE AND THEREFORE NO NEED FOR REPLACEMENT, CONTINUE TO MONITOR ON VENT, RENAL FUNCTION IS GETTING WORSE, CONTINUE TO MONITOR, AND BEGIN OG FEEDING PER DIETARY RECOMMENDATIONS" WILL CARRY OUT ORDERS DIRECTED
[2018-08-30] MEDS: JEVITY 1.2 CAL 1,000 ML BOTTLE GT PRN (17:39)
[2018-08-30] MEDS: RIFAXIMIN 550 MG TABLET PO SCH (17:47)
--- NOTE | 2018-08-30 19:25 | NUR ---
BIKE MECHANIC CLOSING NOTES PT STABLE AT THIS TIME. VSS. PT SEDATED IN DIPRIVAN DRIP AT 20MIC/MIN/KG. SHE IS ALSO RECEIVING DOPAMINE INFUSION AT 1MIC/HR AND TOLERATING WELL. VSS. RIGHT UPPER ARM PICC REMAINS PATENT AND INTACT. NO REDNESS OR SIGNS OF INFILTRATION NOTED. SHE CONTINUES TOLERATING VENT SETTINGS WELL. TUBE FEEDING INITIATED AT 25CC/HR. PT TOLERATING WELL SO FAR. NO RESIDUALS NOTED AT THIS TIME. SAFETY MEASURES REMAIN IN PLACE. ENDORSED TO NIGHTSHIFT HEIDI LOPEZ EBONI
--- NOTE | 2018-08-30 20:00 | NUR ---
RN INITIAL NOTES RECEIVED PT INTUBATED ON MECHANICAL VENT. ETT 7.5, 23 AT THE LIP, AC 18, TV 600, FIO2 60%, PEEP 5. PT TOLERATING VENT SETTINGS WELL. NO SOB OR ACUTE SIGNS OF DISTRESS NOTED. BREATHING IS EVEN AND UNLABORED. PT SINUS RHYTHM ON THE MONITOR WITH A HR OF 77. NORWOOD CATHETER NOTED TO BE DRAINING TO GRAVITY. RIGHT UPPER ARM PICC LINE NOTED TO BE PATENT AND INTACT. NO REDNESS OR SIGNS OF INFILTRATION NOTED. PT TOLERATING IV DRIPS AT SET RATE WELL. BED IN LOW LOCKED POSITION, SIDE RAILS UP X3, WILL CONTINUE TO MONITOR
--- NOTE | 2018-08-30 20:30 | NUR ---
PT RECEIVED INTUBATED 7.5 ETT SECURED AT 23CM AT THE LIP. NO RESP DISTRESS. PT TOLERATING VENT SETTINGS. SX'D FOR MOD AMT OF THIN WHITE SECRETIONS. VENT ALARMS SET AND AUDIBLE. AMBU BAG AT BEDSIDE. VENT PLUGGED INTO RED OUTLET. WILL CONTINUE TO MONITOR. Addendum: 08/30/18 at 2030 by AWA BERGMAN RT Amended: Links added.
[2018-08-31] VITALS (70 sets, daily range): BP systolic 53–119; BP diastolic 37–74
[2018-08-31] MEDS: DOPamine 400 MG in IV D5W 250 ML IV PRN ×5 (00:03→08:02)
[2018-08-31] MEDS: PROPOFOL 100 ML IV PRN ×4 (00:05→13:01)
[2018-08-31] MEDS: LACTULOSE 10 G/15 ML UDC (PYXIS) PO SCH ×4 (00:19→17:35)
[2018-08-31 00:55] LABS: APPEARANCE,URINE TURBID (CLEAR); BILIRUBIN,URINE 3+ (NEGATIVE); BLOOD, URINE 3+ Ery/uL (NEGATIVE); COLOR,URINE BROWN (YELLOW); KETONES,URINE TRACE (NEGATIVE); LEUKOCYTE ESTERASE ,URINE TRACE (NEGATIVE); NITRITE, URINE POSITIVE (NEGATIVE); PH,URINE 6.5 (5.0-8.0); PROTEIN,URINE 2+ mg/dl (NEGATIVE); UGLUCOSE TRACE mg/dL (NEGATIVE)
[2018-08-31 01:08] LABS: BACTERIA,URINE Few /HPF (None Seen); COARSE GRANULAR CASTS,URINE Rare /LPF (None Seen); FINE GRANULAR CASTS,URINE Rare /LPF (None Seen); SQUAMOUS EPITHELIAL CELL,UR Few /HPF (None Seen); YEAST,URINE Moderate /HPF (None Seen)
[2018-08-31 01:09] LABS: CREATININE, URINE 184.3 MG/DL (30.0-125.0); MUCUS,URINE Few /LPF (None Seen); URINE TOTAL PROTEIN 302.5 mg/dL (0-11.9)
[2018-08-31 01:49] LABS: EOSINOPHIL,URINE None Seen
[2018-08-31] MEDS ORDERED: DOPamine 400MG/D5W 250ML RTU 250 ML IV ONE ×3 (01:59→04:41)
[2018-08-31 04:18] LABS: BASOPHILS # (AUTO) 0.2 /CMM (0.0-0.2); BASOPHILS % (AUTO) 0.7 % (0.0-2.0); EOSINOPHILS % (AUTO) 0.3 % (0.0-6.0); HEMATOCRIT 47 % (33-45); HEMOGLOBIN 15.8 g/dL (11.5-14.8); LYMPHOCYTES # (AUTO) 1.1 /CMM (0.8-4.8); LYMPHOCYTES % (AUTO) 3.6 % (20.0-44.0); MEAN CORPUSCULAR HGB CONC 34 g/dl (31.0-36.0); MEAN CORPUSCULAR VOLUME 108 fL (82-100); MONOCYTES # (AUTO) 2.5 /CMM (0.1-1.30); MONOCYTES % (AUTO) 7.9 % (2.0-12.0); NEUTROPHILS # (AUTO) 27.4 /CMM (1.8-8.9); NEUTROPHILS % (AUTO) 87.5 % (43.0-81.0); PLATELET COUNT (AUTO) 141 /CMM (150-450)
[2018-08-31 04:29] LABS: ALBUMIN 1.5 g/dL (3.4-5.0); BILIRUBIN,TOTAL 21.4 mg/dL (0.2-1.0); CALCIUM, SERUM 8.5 mg/dL (8.5-10.1); CREATININE 2.8 mg/dL (0.6-1.3); MAGNESIUM 2.5 mg/dL (1.8-2.4); PHOSPHORUS 5.6 mg/dL (2.5-4.9); POTASSIUM 3.6 mmol/L (3.5-5.1); TOTAL PROTEIN, SERUM 6.3 g/dL (6.4-8.2)
[2018-08-31 04:36] LABS: WHITE BLOOD COUNT (AUTO) 31.3 K/uL (4.3-11.0)
[2018-08-31] MEDS: HEPARIN SODIUM, PORCINE 5000 UNITS/1 ML VIAL SQ SCH ×3 (05:08→21:10)
[2018-08-31 05:10] LABS: BAND % (MANUAL) 11 % (0.0-5.0); LYMPHOCYTES % (MANUAL) 5 % (16-48); METAMYELOCYTES % 2 % (0-0); MONOCYTES % (MANUAL) 4 % (0-11.0); MYELOCYTES % 1 % (0-0); NEUTROPHILS % (MANUAL) 77 (42-76)
[2018-08-31] MEDS: IV NS 0.9% 1,000 ML IV PRN ×3 (05:52→23:45)
--- NOTE | 2018-08-31 06:58 | NUR ---
RN CLOSING NOTES PT STABLE AT THIS TIME. VSS. PT SEDATED IN DIPRIVAN DRIP AT 225MIC/MIN/KG. SHE IS ALSO RECEIVING DOPAMINE INFUSION AT 20MIC/HR AND TOLERATING WELL. VSS. RIGHT UPPER ARM PICC REMAINS PATENT AND INTACT. NO REDNESS OR SIGNS OF INFILTRATION NOTED. SHE CONTINUES TOLERATING VENT SETTINGS WELL. TUBE FEEDING INITIATED AT 25CC/HR. PT TOLERATING WELL SO FAR. NO RESIDUALS NOTED AT THIS TIME.NORWOOD IN PLACE. SAFETY MEASURES REMAIN IN PLACE. ENDORSED TO AM HEIDI LOPEZ EBONI
--- NOTE | 2018-08-31 07:15 | NUR ---
FLEET ASSISTANT OPENING NOTES RECEIVED REPORT FROM PM NURSE.PT INTUBATED ON MECHANICAL VENT. ETT 7.5, 23 AT THE LIP, AC 18, TV 600, FIO2 60%, PEEP 5. PT TOLERATING VENT SETTINGS WELL. NO SOB OR ACUTE SIGNS OF DISTRESS NOTED. BREATHING IS EVEN AND UNLABORED. PT SINUS RHYTHM ON THE MONITOR WITH A HR OF 73. NORWOOD CATHETER NOTED DRAINING DARK URINE WITH SEDIMENTS TO GRAVITY. RIGHT UPPER ARM PICC LINE NOTED PATENT AND INTACT. NO REDNESS OR SIGNS OF INFILTRATION NOTED. PT TOLERATING IV DRIPS AT SET RATE WELL. BED IN LOW LOCKED POSITION, SIDE RAILS UP X3, WILL CONTINUE TO MONITOR
[2018-08-31 08:09] LABS: ABG BASE EXCESS -9.3 mmol/L; ABG OXYGEN SATURATION 94.5 % (92.0-98.5); ABG PCO2 33.9 mmHg (35.0-45.0); ABG PH 7.294 (7.350-7.450); ABG PO2 80.9 mmHg (75.0-100.0); AaDO2 309.6 mmHg; COHb 0.6 % (0.5-1.5); MetHb 0.7 % (0.0-1.5); O2Hb 93.3 % (94.0-97.0); PEEP,BG 5 cm H2O; SITE, ABG Right Radial; VT, ABG 500 mL
--- NOTE | 2018-08-31 08:30 | NUR ---
WOUND CARE CONSULT: PT SEEN FOR RT NECK AREA. PT NOTED TO BE INTUBATED AT THIS TIME WITH HEAD TURNED TOWARD RT SIDE. PT NOTED WITH BRUISING TO RT CHEST/NECK AREA AND MOISTURE NOTED IN FOLD. RECOMMENDATIONS MADE FOR SKIN PROTECTION. DISCUSSED WITH NURSING STAFF. SKIN TO BE KEPT CLEAN AND DRY. WILL SEE PRN. ALL SKIN PROTECTION MEASURES IN PLACE. MD IN AGREEMENT WITH PLAN OF CARE.
[2018-08-31] MEDS: RIFAXIMIN 550 MG TABLET PO SCH ×2 (08:49→17:35)
[2018-08-31] MEDS: POTASSIUM CHLORIDE 20 MEQ POWDER PACKET GT SCH (08:49)
[2018-08-31] MEDS: PANTOPRAZOLE 40 MG/PACK PACK GT SCH (08:49)
[2018-08-31] MEDS ORDERED: DOPAMINE 800MG/D5W 250ML RTU PIGGYBACK IV ONE (09:30)
[2018-08-31] MEDS: DOPamine 800 MG in IV D5W 250 ML IV PRN ×4 (09:41→21:11)
[2018-08-31] MEDS: CEFEPIME 2 GM in IV D5W 100 ML IV SCH (10:16)
[2018-08-31] MEDS ORDERED: NOREPINEPHRINE 16 MG in IV D5W 500 ML IV PRN (10:30)
[2018-08-31] MEDS ORDERED: IV NS 0.9% 500 ML IV ONE (10:30)
[2018-08-31] MEDS ORDERED: IV NS 0.9% 1,000 ML BAG IV ONE (10:30)
[2018-08-31] MEDS ORDERED: LINEZOLID RTU BAG 600 MG in PREMIX 1 EA IV SCH (10:30)
[2018-08-31] MEDS ORDERED: SODIUM BICARBONATE 650 MG TABLET PO PRN (10:30)
--- NOTE | 2018-08-31 11:30 | NUR ---
TRANSFER TABLE OPERATOR NOTE SEEN BY ,UPDATED ABOUT PATIENT CONDITION WITH LABS,MADE AWARE THAT BP LOW.GOT NEW ORDERS.TO GIVE BOLUS NS AND STARTED ON IV ATB.
[2018-08-31] MEDS ORDERED: FEE PK DOSING 1 MIN EA MC ONE (11:34)
[2018-08-31] MEDS ORDERED: VANCOMYCIN 1.25 GM in IV D5W 500 ML IV SCH (12:00)
[2018-08-31] MEDS: MIDODRINE HCL (5MG) 5 MG TABLET GT SCH ×2 (12:39→17:35)
[2018-08-31] MEDS: OCTREOTIDE 100 MCG/ML VIAL SQ SCH ×2 (12:43→17:35)
[2018-08-31] MEDS ORDERED: OCTREOTIDE 50 MCG/ML AMPUL SQ SCH (13:00)
--- NOTE | 2018-08-31 14:00 | NUR ---
ROLLED HAM LACER NOTE GOT CALL FROM [facility],SPOKE TO VALENTIN KUMAR,TOLD SHE IS ACTING CONSERVATOR.TO LET THEM KNOW ABOUT ANY NEW UPDATES.THEY ARE THE ONE WHO MAKES DECISION ABOUT CODE STATUS AND OTHER OFFICIAL ORDERS.CHARGE NURSE KAYLEY MADE AWARE.HOUSE MOVING SUPERVISOR AKBAR MADE AWARE FAXED THE PAPER WORK.FAMILY IS DECISION MAKER.OK TO GIVE INFORMATION TO .
--- NOTE | 2018-08-31 16:00 | NUR ---
DATA CENTER CONSULTANT NOTE SEEN BY FOR ,UPDATED ABOUT PATIENT CONDITION WITH LABS.MADE AWARE ABOUT LOW GRADE FEVER.GOT NEW ORDER FOR ID CONSULT AND OK TO GIVE TYLENOL 325MG IF TEMP>100.4F.
[2018-08-31] MEDS ORDERED: ACETAMINOPHEN 650 MG/20.3 ML UDC GT PRN (16:30)
--- NOTE | 2018-08-31 17:18 | NUR ---
RT NOTE, PT. 57 Y OLD FEMALE REC. 0700 AM ORALLY INTUBATED SEDATED, ETT#7.5 @ 23 CM LIPLINE ON MECHANICAL VENT. WITH NOTED SETTINGS. ALARMS ARE SET AND FUNCTIONAL. VENT PLUGGED INTO RED OUT LET, AMBU BAG AT THE BEDSIDE, EQUAL CHEST RISE NOTED. HME CHANGED, GROCERY CLERK SELLING DONE. ABG DONE, NO CHANGES ON VENT SETTINGS, B/S BILATERALLY DIM/RALES AND SUX'D FOR MOD. AMT OF YELLOW SECRETIONS, PT. REMAIN STABLE, REPORT WILL PASS TO PM SHIFT. Addendum: 08/31/18 at 1721 by CR CHIU RT Amended: Links added.
--- NOTE | 2018-08-31 19:15 | NUR ---
NATIONAL SALES ASSOCIATE NOTE ENDORSED TO PM NURSE FOR EBONI.
--- NOTE | 2018-08-31 19:45 | NUR ---
RN NOTES RECEIVED PT ORALLY INTUBATED WITH ETT 7.3 AND 23 CM AT LIP CONNECTED TO VENTILATOR WITH THE SETTING OF AC 18 TV 500 FIO2 60% PEEP 5. SATURATION 95%. BILATERAL BREATH SOUND WITH RALES. PT IS SEDATED WTIH DIPRIVAN . SR ON TELE MONITOR. NO ACUTE RESPIRATORY DISTRESS. GTF OF JEVITY 1.2 @ 25 ML.HR TOLERATED WELL WITH HOB ELEVATED. PT WITH IV SITE ON TRUONG PICC LINE WITH LEVOPHED, DOPAMINE AND DIPRIVAN TITRATED ORDERED. IVF NS @ 150 ML.HR CONTINUE. IV SITE INTACT AND PATENT WITH GOOD BLOOD RETURN. KEPT PT CLEAN AND COMFORTABLE IN BED. OFFLOADED EXT. WITH PILLOWS. TURN AND REPOSITION FOR SKIN MANAGEMENT. F/C DRAINED WITH JARRED COLOR URINE. KEPT PT CLEAN AND DRY. CONTINUE TO MONITOR.
--- NOTE | 2018-08-31 20:31 | NUR ---
PT RECEIVED INTUBATED 7.5 ETT SECURED AT 23CM AT THE LIP. NO RESP DISTRESS. PT TOLERATING VENT SETTINGS. SX'D FOR MOD AMT OF THIN WHITE SECRETIONS. VENT ALARMS SET AND AUDIBLE. AMBU BAG AT BEDSIDE. VENT PLUGGED INTO RED OUTLET. WILL CONTINUE TO MONITOR. Addendum: 08/31/18 at 2031 by AWA BERGMAN RT Amended: Links added.
[2018-08-31] MEDS ORDERED: MEROPENEM 1 G VIAL IV ONE (21:20)
[2018-08-31] MEDS: MEROPENEM 1 G in IV NS 0.9% 100 ML IV SCH (21:22)
[2018-08-31] MEDS ORDERED: MICAFUNGIN SODIUM 100 MG VIAL IV ONE (21:41)
[2018-08-31] MEDS: MICAFUNGIN SODIUM 100 MG in IV NS 0.9% 100 ML IV SCH (21:56)
[2018-09-01] VITALS (108 sets, daily range): BP systolic 79–129; BP diastolic 32–79
[2018-09-01] MEDS: PROPOFOL 100 ML IV PRN ×6 (00:06→18:07)
[2018-09-01] MEDS: LACTULOSE 10 G/15 ML UDC (PYXIS) PO SCH ×5 (00:07→23:32)
[2018-09-01 04:11] LABS: IMMUNOGLOBULIN A, SERUM 171 mg/dL (87-352); IMMUNOGLOBULIN G, SERUM 628 mg/dL (700-1600); IMMUNOGLOBULIN M, SERUM 34 mg/dL (26-217)
[2018-09-01 04:22] LABS: BASOPHILS # (AUTO) 0.8 /CMM (0.0-0.2); BASOPHILS % (AUTO) 2.4 % (0.0-2.0); EOSINOPHILS % (AUTO) 0.1 % (0.0-6.0); HEMATOCRIT 42 % (33-45); LYMPHOCYTES # (AUTO) 2.1 /CMM (0.8-4.8); LYMPHOCYTES % (AUTO) 6.6 % (20.0-44.0); MEAN CORPUSCULAR HGB CONC 33 g/dl (31.0-36.0); MEAN CORPUSCULAR VOLUME 110 fL (82-100); MONOCYTES # (AUTO) 2.8 /CMM (0.1-1.30); MONOCYTES % (AUTO) 8.7 % (2.0-12.0); NEUTROPHILS # (AUTO) 26.5 /CMM (1.8-8.9); NEUTROPHILS % (AUTO) 82.2 % (43.0-81.0); PLATELET COUNT (AUTO) 148 /CMM (150-450); RED BLOOD CELL COUNT(AUTO) 3.83 MIL/uL (4.0-5.2)
[2018-09-01 04:30] LABS: WHITE BLOOD COUNT (AUTO) 32.2 K/uL (4.3-11.0)
[2018-09-01 04:31] LABS: CALCIUM, SERUM 7.9 mg/dL (8.5-10.1); CREATININE 3.1 mg/dL (0.6-1.3); POTASSIUM 4.4 mmol/L (3.5-5.1)
[2018-09-01] MEDS: DOPamine 800 MG in IV D5W 250 ML IV PRN ×7 (04:40→23:31)
[2018-09-01] MEDS: HEPARIN SODIUM, PORCINE 5000 UNITS/1 ML VIAL SQ SCH ×3 (04:45→20:42)
[2018-09-01 05:17] LABS: BAND % (MANUAL) 9 % (0.0-5.0); LYMPHOCYTES % (MANUAL) 4 % (16-48); MONOCYTES % (MANUAL) 4 % (0-11.0); NEUTROPHILS % (MANUAL) 83 (42-76)
[2018-09-01] MEDS: IV NS 0.9% 1,000 ML IV PRN ×3 (06:21→19:39)
--- NOTE | 2018-09-01 06:46 | NUR ---
RN NOTES PATIENT REMAINED INTUBATED WITH VENT SETTING TOLERATED WELL. SR ON TELE MONITOR HR ON 70'S. NO ACUTE RESPIRATORY DISTRESS. SEDATED WTIH DIPRIVAN @ 20 MCG/KG/MIN. TRUONG PICC LINE RUNNING WITH DOPAMINE AND DIPRIVAN TITRATED ORDERED AND ON AND OFF LEVOPHED TITRATED ORDERED TO MAINTAINED SBP >90 MMHG. PT REMAINED INT HE SAME CONDITION. CONTINUE WITH POC , VSS STABLE. F/C WITH LOW UOP. PT ON LACTULOSE WITH LARGE LOOSE BM X 2. TURNED AND REPOSITIONED Q2H AND PRN PT COMFORTABLE, RESTRAINT KEPT IN PLACED. KEPT PT CLEAN AND DRY. WILL ENDORSED CONTINUITY OF CARE TO AM NURSE.
--- NOTE | 2018-09-01 07:30 | NUR ---
RN OPENING NOTE: RECEIVED PATIENT IN BED, ASLEEP AND SEDATED. ON MECHANICAL VENTILATOR WITH ETT NOTED ON THE LIP 7.5/23 CM AND CURRENT VENTILATOR SETTING OF AC 18 TV 500 FIO2 60% PEEP 5. RESPIRATION EVEN AND UNLABORED SATURATING 95%. HOB ELEVATED. BED LOCKED AT ALL TIMES. ON SEIZURE PRECAUTION. PATIENT WITH (R) UA PICC LINE WITH 3 LUMENS AND CURRENTLY RECEIVING DOPAMINE @20MCG/KG/MIN, PROPOFOL @20MCG/KG/MIN AND NS @150ML/HR. WILL CONTINUE TO MONITOR THE PATIENT'S BLOOD PRESSURE AND HEART RATE. NO FACIAL GRIMACING NOTED. OG TUBE WAS NOTED IN PLACED WITH TUBE FEEDING OF JEVITY 1.2 @25ML/HR. AFEBRILE. SKIN WARM TO TOUCH. CALL LIGHT WITHIN REACH. NEEDS ANTICIPATED.
[2018-09-01 08:18] LABS: ABG BASE EXCESS -13.4 mmol/L; ABG OXYGEN SATURATION 93.8 % (92.0-98.5); ABG PCO2 32.3 mmHg (35.0-45.0); ABG PH 7.222 (7.350-7.450); ABG PO2 78.2 mmHg (75.0-100.0); AaDO2 314.1 mmHg; COHb 0.6 % (0.5-1.5); MetHb 0.6 % (0.0-1.5); O2Hb 92.7 % (94.0-97.0); PEEP,BG 5 cm H2O; SITE, ABG Left Radial; VT, ABG 500 mL
[2018-09-01] MEDS ORDERED: SODIUM BICARBONATE SYR 50 MEQ/50 ML DISP.SYRIN IV ONE (08:30)
--- NOTE | 2018-09-01 08:31 | NUR ---
LIQUOR TESTER NOTES: ABG RESULTS DR. DONOHUE MADE AWARE OF PT'S RECENT ABG RESULTS. TELEPHONE ORDER OBTAINED FOR SODIUM BICARBONATE 2 AMP IVP X1.
[2018-09-01] MEDS: MEROPENEM 1 G in IV NS 0.9% 100 ML IV SCH (08:39)
[2018-09-01] MEDS: JEVITY 1.2 CAL 1,000 ML BOTTLE GT PRN (08:39)
[2018-09-01] MEDS: POTASSIUM CHLORIDE 20 MEQ POWDER PACKET GT SCH (08:41)
[2018-09-01] MEDS: PANTOPRAZOLE 40 MG/PACK PACK GT SCH (08:41)
[2018-09-01] MEDS: MIDODRINE HCL (5MG) 5 MG TABLET GT SCH ×3 (08:41→16:16)
[2018-09-01] MEDS: RIFAXIMIN 550 MG TABLET PO SCH ×2 (08:41→16:16)
[2018-09-01] MEDS: OCTREOTIDE 100 MCG/ML VIAL SQ SCH ×3 (08:42→16:17)
--- NOTE | 2018-09-01 09:16 | NUR ---
RN NOTE: DR. SLOAN CAME BY TO THE UNIT AND WAS GIVEN AN UPDATE REGARDING THE PATIENT'S CURRENT CONDITION. PER MD, CHANGE VENT SETTING FOR TV 550. ORDER, NOTED AND CARRIED OUT.
--- NOTE | 2018-09-01 10:20 | NUR ---
RN NOTE: RECEIVED A PHONE CALL FROM DR. POPPY HANSON FROM [facility] AND ACCORDING TO HER SHE SPOKE WITH DR. FOFANA REGARDING THE POSSIBLE TRANSFER OF THIS PATIENT TO [facility]. SHE SAID THAT SHE WAS HELPING IN THE COORDINATION OF THE TRANSFER TO ANOTHER HOSPITAL. WILL INFORM THE FOOD SERVICE COUNTER CLERK ABOUT THIS PHONE CALL.
--- NOTE | 2018-09-01 12:17 | NUR ---
RN NOTE: DR. FOFANA PRESENT IN THE ROOM ASSESSED PATIENT AND GAVE HIM AN UPDATE REGARDING THE PATIENT'S CURRENT LABS SPECIALLY HER GLUCOSE DESPITE RECEIVING OGT FEEDING OF 45ML/HR. MD GAVE VERBAL ORDER TO DRAW LFTS AND TRIGLYCERIDES AND ADD TO AM LABS. ORDER, NOTED AND CARRIED OUT. MD REFUSED TO ORDER BLOOD SUGAR CHECK FOR THE PATIENT AT THIS TIME. WILL CONTINUE TO MONITOR THE PATIENT.
[2018-09-01 12:34] LABS: BILIRUBIN,DIRECT 15.4 mg/dL (0.0-0.2); BILIRUBIN,TOTAL 18.6 mg/dL (0.2-1.0); TOTAL PROTEIN, SERUM 5.4 g/dL (6.4-8.2)
[2018-09-01 12:37] LABS: ALBUMIN 1.2 g/dL (3.4-5.0)
[2018-09-01] MEDS ORDERED: JEVITY 1.2 CAL 1,000 ML BOTTLE GT PRN (16:30)
--- NOTE | 2018-09-01 16:32 | NUR ---
RN NOTE: SPOKE WITH DR. SLOAN AND INFORMED HIM ABOUT THE PATIENT'S FLUCTUATING BP AND THE INCREASED ON THE PATIENT'S DOPAMINE TO 25MCG/KG/MIN. MD WAS ASKED IF OK TO REMOVE PEEP 5. MD AGREED AND GAVE A VERBAL ORDER FOR THE VENT CHANGE. NOTED AND CARRIED OUT.
--- NOTE | 2018-09-01 17:20 | NUR ---
RT NOTE, PT. 57 Y OLD FEMALE REC. 0700 AM ORALLY INTUBATED SEDATED, ETT#7.5 @ 23 CM LIP LINE ON MECHANICAL VENT. WITH NOTED SETTINGS. ALARMS ARE SET AND FUNCTIONAL. VENT PLUGGED INTO RED OUT LET, AMBU BAG AT THE BEDSIDE, EQUAL CHEST RISE NOTED. HME CHANGED, BACK STAYER DONE. ABG DONE, VENT CHANGES DONE PER DR. SLOAN ORDER , B/S BILATERALLY DIM/RALES AND SUX'D FOR LARGE/MOD. AMT OF WHITE/YELLOW SECRETIONS, PT. REMAIN STABLE, REPORT WILL PASS TO PM SHIFT. Addendum: 09/01/18 at 1721 by CR CHIU RT Amended: Links added.
--- NOTE | 2018-09-01 19:05 | NUR ---
RN CLOSING NOTE: PATIENT REMAINED ON MECHANICAL VENTILATOR AND CURRENT VENT SETTING AC 12 TV 550 FIO2 60% PEEP 0 SATURATING 96%. BEDSIDE REPORT WAS GIVEN TO PM SHIFT NURSE FOR CONTINUITY OF CARE. PATIENT REMAINED ON DOPAMINE 25 MCG/KG/MIN AND PROPOFOL 20MCG/KG/MIN WITH IVF OF NS @150ML/HR. NORWOOD CATHETER REMAINED IN PLACED. (R) UA PICC LINE TRIPLE LUMEN NOTED PATENT AND INTACT. BED LOCKED AT ALL TIMES. CALL LIGHT WITHIN REACH. SEIZURE PRECAUTION OBSERVED.
--- NOTE | 2018-09-01 19:30 | NUR ---
RN NOTES RECEIVED PT SEDATED WITH DIPRIVAN ORALLY INTUBATED WITH ETT 7.5 AND 23 CM AT LIP WITH PATRICK SETTING OF AC 18 TV 550 FIO2 60% NO PEEP. TOLERATED WELL. NSR ON TELE MONITOR HR 78, SATURATION 95%. NO ACUTE RESPIRATORY DISTRESS, NO FACIAL COMPLAIN OF PAIN FOR NON VERBAL PATIENT. PT IS REACTIVE FOR PAIN. EYES REACTED TO LIGHT. BILATERAL BREATH SOUND RALES, SUCTIONED WITH YELLOWISH THICK COLOR SECRETION. WITH GOOD PERIPHERAL PULSES. IV SITE ON TRUONG TLC C/D/I RUNNING WITH DOPAMINE @ 25 MCG/KG/MIN AND DIPRIVAN 20 MCG/KG/MIN AND NS @ 150 ML.HR TITRATED PROTOCOL ORDER. OGTF JEVITY 1.2 @ 55 ML.HR INTACT PATENCY CHECKED NO RESIDUAL. TOLERATED W/HOB ELEVATED. PT IS WARMTH TO TOUCH LATEST TEMP 99.1. WITH NORWOOD CATH DRAINED WITH JARRED COLOR URINE. OFF FROM THE FLOOR. TURNED AND REPOSITIONED PATIENT Q2H AND PRN. OFFLOADED EXT WITH PILLOWS. BOTH WRIST RESTRAINT KEPT IN PLACED CIRCULATION CHECKED. KEPT PT CLEAN AND DRY. WILL CONTINUE TO MONITOR.
[2018-09-01] MEDS: MEROPENEM 500 MG in IV NS 0.9% 50 ML IV SCH (20:41)
--- NOTE | 2018-09-01 20:43 | NUR ---
PT RECEIVED INTUBATED 7.5 ETT SECURED AT 23CM AT THE LIP. NO RESP DISTRESS. PT TOLERATING VENT SETTINGS. SX'D FOR MOD AMT OF THIN WHITE SECRETIONS. VENT ALARMS SET AND AUDIBLE. AMBU BAG AT BEDSIDE. VENT PLUGGED INTO RED OUTLET. WILL CONTINUE TO MONITOR. Addendum: 09/01/18 at 2043 by AWA BERGMAN RT Amended: Links added.
[2018-09-01] MEDS: MICAFUNGIN SODIUM 100 MG in IV NS 0.9% 100 ML IV SCH (22:12)
[2018-09-01] MEDS: VANCOMYCIN 1.25 GM in IV D5W 500 ML IV SCH (23:31)
[2018-09-02] VITALS (116 sets, daily range): BP systolic 63–120; BP diastolic 34–78
[2018-09-02] MEDS: PROPOFOL 100 ML IV PRN ×6 (02:00→21:48)
[2018-09-02 04:22] LABS: CALCIUM, SERUM 7.4 mg/dL (8.5-10.1); CREATININE 3.2 mg/dL (0.6-1.3); POTASSIUM 4.4 mmol/L (3.5-5.1)
[2018-09-02] MEDS: JEVITY 1.2 CAL 1,000 ML BOTTLE GT PRN ×2 (04:35→23:36)
[2018-09-02 04:52] LABS: PLATELET COUNT (AUTO) 154 /CMM (150-450)
[2018-09-02 04:56] LABS: BASOPHILS # (AUTO) 0.6 /CMM (0.0-0.2); BASOPHILS % (AUTO) 1.9 % (0.0-2.0); EOSINOPHILS % (AUTO) 1.2 % (0.0-6.0); HEMATOCRIT 41 % (33-45); HEMOGLOBIN 13.9 g/dL (11.5-14.8); LYMPHOCYTES # (AUTO) 3.1 /CMM (0.8-4.8); LYMPHOCYTES % (AUTO) 10.6 % (20.0-44.0); MEAN CORPUSCULAR HGB CONC 34 g/dl (31.0-36.0); MEAN CORPUSCULAR VOLUME 111 fL (82-100); MONOCYTES % (AUTO) 6.9 % (2.0-12.0); NEUTROPHILS # (AUTO) 23.3 /CMM (1.8-8.9); NEUTROPHILS % (AUTO) 79.4 % (43.0-81.0); RED BLOOD CELL COUNT(AUTO) 3.69 MIL/uL (4.0-5.2); WHITE BLOOD COUNT (AUTO) 29.4 K/uL (4.3-11.0)
[2018-09-02] MEDS: DOPamine 800 MG in IV D5W 250 ML IV PRN ×8 (05:33→23:43)
[2018-09-02] MEDS: LACTULOSE 10 G/15 ML UDC (PYXIS) PO SCH ×4 (05:34→23:36)
[2018-09-02] MEDS: HEPARIN SODIUM, PORCINE 5000 UNITS/1 ML VIAL SQ SCH ×3 (05:34→20:12)
[2018-09-02] MEDS: IV NS 0.9% 1,000 ML IV PRN (05:38)
[2018-09-02 06:03] LABS: BAND % (MANUAL) 13 % (0.0-5.0); NEUTROPHILS % (MANUAL) 75 (42-76)
[2018-09-02 06:04] LABS: LYMPHOCYTES % (MANUAL) 8 % (16-48); MONOCYTES % (MANUAL) 4 % (0-11.0)
--- NOTE | 2018-09-02 07:30 | NUR ---
RN NOTES PT REMAINED SEDATED NO SIGNIFICANT CHANGES THROUGHOUT THE SHIFT. ETT AND VENT SETTING TOLERATED WELL. CONTINUE WITH DIPRIVAN AND DOPAMINE TITRATED PROTOCOL ORDERED. AFEBRILE. VSS. REMAINED SR 60'S - 70'S / IV SITE ON TRUONG INTACT AND PATENT. F/C DRAINED WITH LOW UOP. WITH LARGE BMX2. KEPT PT CLEAN AND COMFORTABLE IN BED. TURNED AND REPOSITIONED Q2H AND PRN. ENDORSED CONTINUITY OF CARE TO AM NURSE.
--- NOTE | 2018-09-02 07:30 | NUR ---
RN OPENING NOTE: RECEIVED PATIENT IN BED, ASLEEP AND SEDATED. ON MECHANICAL VENTILATOR WITH ETT NOTED ON THE LIP 7.5/23 CM AND CURRENT VENTILATOR SETTING OF AC 18 TV 500 FIO2 60% PEEP 0. RESPIRATION EVEN AND UNLABORED SATURATING 97%. HOB ELEVATED. BED LOCKED AT ALL TIMES. ON SEIZURE PRECAUTION. PATIENT WITH (R) UA PICC LINE WITH 3 LUMENS AND CURRENTLY RECEIVING DOPAMINE @30MCG/KG/MIN, PROPOFOL @25MCG/KG/MIN AND NS @150ML/HR. WILL CONTINUE TO MONITOR THE PATIENT'S BLOOD PRESSURE AND HEART RATE. NO FACIAL GRIMACING NOTED. OG TUBE WAS NOTED IN PLACED WITH TUBE FEEDING OF JEVITY 1.2 @55ML/HR. AFEBRILE. SKIN WARM TO TOUCH. CALL LIGHT WITHIN REACH. NEEDS ANTICIPATED.
--- NOTE | 2018-09-02 08:09 | NUR ---
WOUND CARE CONSULT: PT SEEN FOR ABDOMINAL FOLD MOISTURE ASSOCIATED OPEN SKIN AND POSTERIOR NECK RED RASH WITH PEELING SKIN. RECOMMENDATIONS MADE FOR SKIN PROTECTION AND CARE. DISCUSSED WITH NURSING STAFF. PT CONTINUES TO BE INTUBATED WITH CLEAR SECRETIONS FROM MOUTH NOTED. SKIN TO BE KEPT CLEAN AND DRY. PT INCONTINENT OF LOOSE STOOL AT TIMES. WILL SEE PRN. PT ON [facility] BED WITH ETS AIR. IN AGREEMENT WITH PLAN OF CARE. Addendum: 09/02/18 at 0811 by NILDA LEYVA WNDNU Amended: Links added.
[2018-09-02 08:48] LABS: ABG BASE EXCESS -15.6 mmol/L; ABG OXYGEN SATURATION 92.9 % (92.0-98.5); ABG PCO2 33.2 mmHg (35.0-45.0); ABG PH 7.168 (7.350-7.450); AaDO2 313.3 mmHg; COHb 0.5 % (0.5-1.5); MetHb 0.8 % (0.0-1.5); O2Hb 91.7 % (94.0-97.0); SITE, ABG Right Radial
[2018-09-02] MEDS: MEROPENEM 500 MG in IV NS 0.9% 50 ML IV SCH ×2 (09:05→20:11)
[2018-09-02] MEDS: MIDODRINE HCL (5MG) 5 MG TABLET GT SCH ×3 (09:28→17:20)
[2018-09-02] MEDS: PANTOPRAZOLE 40 MG/PACK PACK GT SCH (09:28)
[2018-09-02] MEDS: POTASSIUM CHLORIDE 20 MEQ POWDER PACKET GT SCH (09:28)
[2018-09-02] MEDS: OCTREOTIDE 100 MCG/ML VIAL SQ SCH ×3 (09:28→17:20)
[2018-09-02] MEDS: RIFAXIMIN 550 MG TABLET PO SCH ×2 (09:28→17:20)
[2018-09-02] MEDS ORDERED: SODIUM BICARBONATE SYR 50 MEQ/50 ML DISP.SYRIN IV ONE (09:30)
[2018-09-02] MEDS: CLOTRIMAZOLE 1% 15 GM TUBE TP SCH ×2 (10:02→17:58)
[2018-09-02] MEDS: Sodium Acetate 150 MEQ in IV D5W 1,000 ML IV PRN (11:00)
[2018-09-02 12:05] LABS: ABG BASE EXCESS -12.7 mmol/L; ABG OXYGEN SATURATION 93.1 % (92.0-98.5); ABG PH 7.226 (7.350-7.450); ABG PO2 74.7 mmHg (75.0-100.0); AaDO2 315.7 mmHg; COHb 0.4 % (0.5-1.5); MetHb 0.7 % (0.0-1.5); O2Hb 92.1 % (94.0-97.0); PEEP,BG 0 cm H2O; SITE, ABG Right Radial; VT, ABG 600 mL
--- NOTE | 2018-09-02 13:00 | NUR ---
RN NOTE: DR. FOFANA CAME BY AND SAID THAT HE HAS BEEN COORDINATING WITH DR. POPPY HANSON FROM [facility] REGARDING THE POSSIBLE TRANSFER TO [facility] FOR THE MRCP. PER MD, HE WILL SPEAK WITH DR. PACHECO (ACCEPTING GI MD AT [facility]) THAT PATIENT CAN BE TRANSFER TO THE OTHER HOSPITAL IF MD WILL AGREE TO DO THE PROCEDURE DESPITE THE PATIENT'S CURRENT CONDITION.
--- NOTE | 2018-09-02 14:58 | NUR ---
DELICATESSEN DEPARTMENT MANAGERHAZMAT TECHNICIAN NOTES: CALLED RECEIVED FROM [employer] GLUE SPREADER IN REGARDS TO PT'S TRANSFER. PER DEREK "PT HAS BEEN DECLINED BY [facility]". CHARGE NURSE MADE AWARE.
[2018-09-02 17:26] LABS: ABG BASE EXCESS -13.4 mmol/L; ABG PCO2 27.6 mmHg (35.0-45.0); ABG PH 7.256 (7.350-7.450); ABG PO2 79.6 mmHg (75.0-100.0); AaDO2 317.8 mmHg; COHb 0.5 % (0.5-1.5); MetHb 0.6 % (0.0-1.5); SITE, ABG Right Radial; VT, ABG 600 mL
--- NOTE | 2018-09-02 18:30 | NUR ---
RT EOS NOTES. PT REC'D STILL ORALLY INTUBATED. VENT CHANGES MADE THROUGHOUT THE SHIFT. NO FIO2 CHANGES DONE. VENT ALARMS SET AND AUDIBLE PER POLICY. VENT PLUGGED INTO RED OUTLET. AMBU BAG AT [facility].
--- NOTE | 2018-09-02 19:41 | NUR ---
PT RCVD ORALLY INTUBATED WITH 7.5 ETT SECURED @ 23 CM AT THE LIP [facility] WITH NOTED SETTINGS. PT IS SEDATED. PRESS CATCHER CUFF PRESSURE NOTED. NO RESP DISTRESS OR SOB NOTED AT THIS TIME . SX'D MODERATE AMT OF YELLOW THICK SECRETIONS. ALARMS ARE SET AND AUDIBLE. VENT PLUGGED INTO RED OUTLET. AMBU BAG BEDSIDE. WILL CONTINUE TO MONITOR.
--- NOTE | 2018-09-02 19:55 | NUR ---
RN NOTE: BEDSIDE REPORT WAS GIVEN TO PM SHIFT NURSE FOR CONTINUITY OF CARE. PATIENT REMAINED ON MECHANICAL VENTILATOR AND ON CONTINUOUS IV DRIP FOR DOPAMINE 30MCG AND PROPOFOL 20MCG. DARK JARRED COLOR URINE OUTPUT OF 450ML IN TOTAL DURING THE SHIFT.
--- NOTE | 2018-09-02 19:59 | NUR ---
MACHINE CLOTHING WORKER NOTES RECEIVED PT ON BED. ON [facility] VENT SETTING SATURATING WELL. NO RESPIRATORY DISTRESS NOTED. SR 76 ON MONITOR. NORWOOD CATH DRAINING CLOUDY URINE. ON PROPOFOL 30MCG AND DOPAMINE 30MCG, IV ACCESS PATENT AND INTACT. ON JEVITY @55CC/HR NO RESIDUAL NOTED. HEAD OF BED ELEVATED. SIDE RAILS UP. CALL LIGHT WITHIN REACH. BED ALARM ON. WILL CONTINUE TO MONITOR PT CLOSELY.
[2018-09-03] VITALS (95 sets, daily range): BP systolic 67–132; BP diastolic 36–95
[2018-09-03] MEDS: DOPamine 800 MG in IV D5W 250 ML IV PRN ×9 (02:04→22:18)
[2018-09-03] MEDS: PROPOFOL 100 ML IV PRN ×5 (02:32→22:17)
[2018-09-03] MEDS: Sodium Acetate 150 MEQ in IV D5W 1,000 ML IV PRN (03:03)
--- NOTE | 2018-09-03 04:25 | NUR ---
CAB WORKER NOTES TEMPT OF 100F . ICE BATH DONE AND COOLING MEASURES OBSERVED. WILL MONITOR PT CLOSELY.
[2018-09-03 04:56] LABS: CALCIUM, SERUM 7.7 mg/dL (8.5-10.1); CREATININE 3.3 mg/dL (0.6-1.3); POTASSIUM 4.3 mmol/L (3.5-5.1)
[2018-09-03] MEDS: LACTULOSE 10 G/15 ML UDC (PYXIS) PO SCH ×3 (05:26→17:28)
[2018-09-03] MEDS: HEPARIN SODIUM, PORCINE 5000 UNITS/1 ML VIAL SQ SCH ×2 (05:27→12:12)
--- NOTE | 2018-09-03 06:46 | NUR ---
FAT PRESSROOM WORKER NOTES NO ACUTE CHANGES NOTED DURING THE SHIFT. PT V/S WNL. WILL ENDORSE TO THE AM NURSE FOR CONTINUITY OF CARE.
--- NOTE | 2018-09-03 08:25 | NUR ---
received pt from security shift manager, sedated on Diprivan at 20mcg, SR, receiving dopamine at 30mcg, on the vent, intubated, lungs partially congested, edema present, OG tube to feeding, tolerates well, f/c OK output, restraints on, jaundice, v/s stable, no pain.
[2018-09-03] MEDS: POTASSIUM CHLORIDE 20 MEQ POWDER PACKET GT SCH (08:33)
[2018-09-03] MEDS: MIDODRINE HCL (5MG) 5 MG TABLET GT SCH ×3 (08:33→17:28)
[2018-09-03] MEDS: OCTREOTIDE 100 MCG/ML VIAL SQ SCH ×3 (08:33→17:28)
[2018-09-03] MEDS: PANTOPRAZOLE 40 MG/PACK PACK GT SCH (08:34)
[2018-09-03] MEDS: RIFAXIMIN 550 MG TABLET PO SCH ×2 (08:34→17:28)
[2018-09-03] MEDS: MEROPENEM 500 MG in IV NS 0.9% 50 ML IV SCH ×2 (08:35→20:57)
[2018-09-03] MEDS: CLOTRIMAZOLE 1% 15 GM TUBE TP SCH ×2 (08:36→17:29)
[2018-09-03 08:44] LABS: ABG BASE EXCESS -11.6 mmol/L; ABG OXYGEN SATURATION 93.6 % (92.0-98.5); ABG PCO2 34.3 mmHg (35.0-45.0); ABG PH 7.246 (7.350-7.450); AaDO2 313.1 mmHg; COHb 0.4 % (0.5-1.5); MetHb 0.6 % (0.0-1.5); O2Hb 92.7 % (94.0-97.0); PEEP,BG 0 cm H2O; SITE, ABG Left Radial; VT, ABG 600 mL
[2018-09-03] MEDS: VANCOMYCIN 1.25 GM in IV D5W 500 ML IV SCH (11:31)
[2018-09-03 12:07] LABS: ANTI-MITOCHONDRIAL AB <20.0 Units (0.0-20.0)
--- NOTE | 2018-09-03 13:21 | NUR ---
RT PT RECEIVED INTUBATED 7.5 ETT SECURED AT 23CM AT THE LIP. NO RESPIRATORY DISTRESS NOTED THROUGHOUT SHIFT. PT TOLERATING VENT SETTINGS. SUCTIONED MOD AMT OF THIN WHITE SECRETIONS. VENT ALARMS SET AND WORKING PROPERLY. AMBU BAG AT BEDSIDE. VENT PLUGGED INTO RED OUTLET. WILL CONTINUE TO MONITOR FOR ANY CHANGES. Addendum: 09/03/18 at 1845 by FAVIOLA DORADO RT Amended: Links added.
--- NOTE | 2018-09-03 16:09 | NUR ---
pt sedated on Diprivan at 20mcg, SR, receiving dopamine at 30mcg, OG to feeding tolerates well, restraints on, v/s stable, no pain, pt cleaned, changed and repositioned q2hrs.
--- NOTE | 2018-09-03 20:00 | NUR ---
ENDORSED REPORT TO TRACEY GORDON @ [facility] IN [place] FOR CONTINUITY OF CARE. AWAITING ARRIVAL OF EMS TEAM.
--- NOTE | 2018-09-03 22:30 | NUR ---
EMS TEAM ARRIVED TO TRANSPORT PT TO [facility] IN [place]. ENDORSED REPORT TO EMS TEAM AND CONTINUOUS MINING MACHINE COAL MINER.
--- NOTE | 2018-09-03 22:58 | NUR ---
PT TOLERATED TRANSFER TO [facility]. ALL MEDICATION DRIPS ENDORSED TO [facility] AND TRANSFERRED TO [facility] PUMP FOR TRANSPORT. PT PLACED ON [facility] PORTABLE VENTILATOR FOR TRANSPORT. PT REMAINS IN STABLE CONDITION. PT LEFT HOSPITAL WITH [facility] AND EMS TEAM. [facility] NOTIFIED THAT PATIENT HAS LEFT [facility] IN STABLE CONDITION.
== END 2018-09-03 23:00 | disposition short-term general hospital (02) | DRG 207 ==
LOC: ER 12:30 → ICU 14:04
PROVIDERS: ADMIT Internal Medicine; ATTEND Internal Medicine
PROC: 0BH17EZ Insertion of Endotracheal Airway into Trachea, Via Natural or Artificial Opening (ICD-10-PCS; 2018-08-25)
PROC: 5A09357 Assistance with Respiratory Ventilation, Less than 24 Consecutive Hours, Continuous Positive Airway Pressure (ICD-10-PCS; 2018-08-25)
PROC: 02HV33Z Insertion of Infusion Device into Superior Vena Cava, Percutaneous Approach (ICD-10-PCS; 2018-08-25)
PROC: B548ZZA Ultrasonography of Superior Vena Cava, Guidance (ICD-10-PCS; 2018-08-25)
PROC: 5A1945Z Respiratory Ventilation, 24-96 Consecutive Hours (ICD-10-PCS; 2018-08-25)
PROC: 5A1955Z Respiratory Ventilation, Greater than 96 Consecutive Hours (ICD-10-PCS; principal; 2018-08-29)
PROC: 0BH17EZ Insertion of Endotracheal Airway into Trachea, Via Natural or Artificial Opening (ICD-10-PCS; 2018-08-29)
PROC: 05H533Z Insertion of Infusion Device into Right Subclavian Vein, Percutaneous Approach (ICD-10-PCS; 2018-08-29)
DX: J96.02 Acute respiratory failure with hypercapnia (principal); A41.9 Sepsis, unspecified organism; K83.1 Obstruction of bile duct; R65.21 Severe sepsis with septic shock; N17.0 Acute kidney failure with tubular necrosis; K76.7 Hepatorenal syndrome; J18.9 Pneumonia, unspecified organism; E66.2 Morbid (severe) obesity with alveolar hypoventilation; Z68.44 Body mass index [BMI] 60.0-69.9, adult; Z99.11 Dependence on respirator [ventilator] status; E46 Unspecified protein-calorie malnutrition; E87.0 Hyperosmolality and hypernatremia; G93.49 Other encephalopathy; E83.42 Hypomagnesemia; Z87.891 Personal history of nicotine dependence; K64.9 Unspecified hemorrhoids; K74.60 Unspecified cirrhosis of liver; K75.81 Nonalcoholic steatohepatitis (NASH); Z93.1 Gastrostomy status; I10 Essential (primary) hypertension; F39 Unspecified mood [affective] disorder; D63.8 Anemia in other chronic diseases classified elsewhere; E87.6 Hypokalemia; G40.909 Epilepsy, unspecified, not intractable, without status epilepticus; K74.69 Other cirrhosis of liver; F31.9 Bipolar disorder, unspecified; M17.10 Unilateral primary osteoarthritis, unspecified knee; E87.70 Fluid overload, unspecified; J44.9 Chronic obstructive pulmonary disease, unspecified; K72.90 Hepatic failure, unspecified without coma
CPT/HCPCS: 31720; 36415; 36600; 71045-TC; 76700-TC; 80048-TC; 80053-TC; 80074; 80076-TC; 80202-TC; 80305; 81000-TC; 82140-TC; 82247-TC; 82248-TC; 82550-TC; 82570-TC; 82784; 82803-TC; 83516; 83605-TC; 83735-TC; 83880; 83970; 84100-TC; 84155; 84155-TC; 84165; 84300-TC; 84478-TC; 84484-TC; 85025-TC; 85610-TC; 85730-TC; 86850-TC; 87040-TC; 87070-TC; 87081-TC; 87086-TC; 87806; 94002-TC; 94003-TC; 94760-TC; 94799-TC; 99082-TC; A4216; A4217; A6253; A6403; C1751; G0378; J0330; J0461; J0692; J0743; J1265; J1644; J1885; J2020; J2185; J2248; J2354; J2405; J3370; J3475; J3480; J3490; J7030; J7040; J7042; J7060; J7070